=== PATIENT | female | born 2000 | race Caucasian/White ===

== ENCOUNTER 2020-05-28 03:44 | Inpatient (IN) | payer BC, OTHER ==
[2020-05-27 16:35] LABS: Urine Appearance CLEAR; Urine Bilirubin NEGATIVE (NEG); Urine Blood NEGATIVE (NEG); Urine Color YELLOW; Urine Glucose NEGATIVE (NEG); Urine Protein NEGATIVE (NEG); Urine pH 6.5 (5.0-7.0)
[2020-05-27 16:36] LABS: Absolute Lymphocytes (CBC) 1.9 K/uL (0.7-4.9); Basophils % 0.1 % (0-1.3); Hematocrit 32.8 % (36.0-45.0); Lymphocytes % 25.3 % (15.3-44.8); MPV 8.7 fL (7.6-11.3); RBC Red Blood Cell Count 3.79 M/uL (3.86-4.86)
[2020-05-27 16:54] LABS: Urine Microscopic Reflex ORDER UMIC
[2020-05-27 16:57] LABS: Urine Bacteria <20 /HPF (<20); Urine Culture Reflex Order REFLEXED; Urine Mucus LIGHT /HPF (NONE SEEN); Urine RBC NONE SEEN /HPF (NONE SEEN)
[2020-05-28 01:42] LABS: RPR (Rapid Plasma Reagin) NON-REACT (NON-REACT)
--- OUTSIDE RECORDS SUMMARY | 2020-05-28 03:48 | XMS REPORT | Continuity of Care Document ---
:2000 Author Organization [facility] t Address [address] [place] [address] Care Team Providers Name Role Phone Smitha SOLORIO APN Primary Care Physician Pob1, Care Clinic Attending Clinician Unavailable RON Attending Clinician Unavailable Smitha ESPARZA Attending Clinician Unavailable RON Admitting Clinician Unavailable Advance Directives Directive Decision Effective Date Termination Date Comments Sour ce Yes N/A [facility] - Leonidas per [facility] umang Problems Condition Condition Condition Status Onset Resolution Last Treating Co mments Source Name Details Category Date Date Treatment Clinician Date 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 00:00: Me moria ns ns 00 l (LUF/LI V/SA) Patient Patient Problem Active [facility] currently currently 9-11 Luke s - 00:00: Memori a 00 l (LUF/LI V/SA) 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 0-16 S - 00:00: [place] [facility] Chronic Chronic Problem Active [facility] cryptitis cryptitis Luke s - of tonsil of tonsil [facility] Chronic Chronic Problem Active [facility] tonsilliti tonsilliti Sam kes - s s [facility] Encounter Encounter Problem Active [facility] for for [facility] screening screening l of mother of mother Outp ati ent Clinics Missed Missed Problem Active [facility] period period [facility] Endometrio Endometrio Problem Active [facility] sis sis [facility] Pelvic Pelvic Diagnosis Active [facility] pain pain [facility] Endometria Endometria Problem Active [facility] l disorder l disorder Sam kes - Memoria l (LUF/LI V/SA) Disorder Disorder Problem Active [facility] t of of Zbigniew - boby landis Me moria r r l (LUF/LI V/SA) Influenza Problem APRIL U due to S - influenza [place] virus, [facility]oria type A, l human Hospita l Fever in Problem [facility] pediatric S - patient [place] [facility] Urinary Problem [facility] tract S - infection [place] [facility] Abdominal Problem APRIL U pain S - [place] [facility] Cough Problem [facility] S - [place] [facility] Sinusitis Problem APRIL U S - [place] [facility] Right Problem [facility] lower S - quadrant [place] abdominal [facility] pain [facility]ospita [facility] Constipati Problem JOHN MACIEL on S - [place] [facility] Upper Problem [facility] respirator S - y tract [place] infection [facility] Pain of Problem [facility] round S - ligament [place] during [facility] Muscle Problem [facility] strain S - [place] [facility] Vaginal Problem [facility]RISTU discharge S - [place] [facility] Pharyngiti Problem JOHN MACIEL s S - [place] [facility] Viral Problem [facility] upper S - respirator [place] y tract [facility] infection l Hospita l Vomiting Problem [facility] and S - diarrhea [place] [facility] Gastroesop Problem JOHN MACIEL hageal S - reflux [place] disease [facility] Female Problem [facility] pelvic S - inflammato [place] ry disease [facility] a l Hospita l Allergies, Adverse Reactions, Alerts This patient has no known allergies or adverse reactions. Social History Social Habit Start Date Stop Date Quantity Comments Source Sex Assigned At [birth year] Female [facility] - [place] 00:00:00 00:00:00 [facility] Smoking Status Start Date Stop Date Source Never smoked tobacco (finding) [facility] Medications Ordered Filled Start Stop Current Ordering Indication Dosage Frequency Signature Comments Components Source Medication Medication Date Date Medication? Clinician (SIG) Name Name Gustavo Ruiz 2018-09 Yes Sherice [address] [facility] 10/02 Ron [facility] - 00:[facility]: [facility] l [facility] Clin[facility] Acetaminoph 2018-09 No 1000mg CHRI SILVER en 09-14 S - 13:14: [place] 00 [facility] Doxycycline 2018-09 No 100mg JOHN TU Monohydrate 09-14 S - 13:14: [place] 00 [facility] Ibuprofen 2018-09 No 400mg CHRISTU 09-14 S 13:14: [place] [facility] Tramadol 2018-09 No 50mg [facility] Hcl 09-14 S 13:14: [place] [facility] Ortho Ortho Yes Sherice 1 tablet [facility] t Tri-Cyclen Tri-Cyclen 9 Ron singer - ) () 00:00: [facility] 00 l [facility]pat[facility] ent Clinics Ondansetron No 4mg APRIL U Hcl 6-17 S - 09:07: [place] [facility] Pantoprazol No 40mg APRIL U e 6-17 S - 09:07: [place] [facility] Depo-Program Rep Depo-Program Rep Yes Sherice [address] [facility] a a 5-01 Ron [facility] - [facility] Promethazin Promethazin Yes Sherice [address] [facility] e HCl e HCl 3-01 Ron 4-6 hrs [facility] - 00:00: prn nausia Memoria 00 vomiting l Outpati ent Clinics PNV PNV Yes Sherice not [facility] Ron defined [facility] Triamcinolo Triamcinolo Yes Sherice [address] [facility] ne ne Ron applicatio [facility] - Acetonide Acetonide n to Memor ia affected l area on Outpati body ent Clinics Flagyl Flagyl Yes Sherice 1 tablet [facility] Ron [facility] Yes Sherice as [facility] t Intrauterin Intrauterin Ron directed [facility] - e Copper e Copper [facility] Clin[facility] Integra Integra Yes 1cap QD [facility] Plus 125 Plus 125 [facility] - mg-1 mg mg-1 mg Memoria l (LUF/LI V/SA) No 1 [facility]U Vit,Calc76/ S - Iron/Folic [place] [facility] Immunizations Ordered Immunization Filled Immunization Date Status Commen ts Source Name Name FLUCELVAX FLUCELVAX Unknown Completed [facility] (LUF/RUSTY/SA) Vital Signs Vital Name Observation Time Observation Value Comments Source Body Temperature 2019-07-15 13:25:00 97.2 [degF] [facility] Heart Rate 2019-07-15 13:25:00 85 /min [facility] Respiratory rate 2019-07-15 13:25:00 18 /min [facility] BP Systolic 2019-07-15 13:25:00 122 mm[Hg] [facility] BP Diastolic 2019-07-15 13:25:00 76 mm[Hg] [facility] Heart Rate 2019-07-15 10:35:00 85 /min [facility] Respiratory rate 2019-07-15 10:35:00 18 /min [facility] BP Systolic 2019-07-15 10:35:00 107 mm[Hg] [facility] BP Diastolic 2019-07-15 10:35:00 70 mm[Hg] [facility] Weight 2019-07-15 10:35:00 126 [lb_av] [facility] BMI (Body Mass Index) 2019-07-15 10:35:00 21.0 kg/m2 [facility] Procedures This patient has no known procedures. Plan of Care Planned Activity Planned Date Details Comments Source Future Scheduled Test Bacterial urine culture [facility] [place] [code = 630-4] [facility] Goal Patient referral [code JOHN Gillis = [id number] ] [facility]code JOHN Gillis [facility] [id number] ] [facility] Pel[facility] Inflammatory [facility] Start End Encounter Admission Attending Care Care Encounter Source Date/Time Date/Time Type Type Clinicians Facility Department ID 2020-01-10 2020-01-10 Urgent Pob1, Acute [facility] [id number] 12:10:50 12:56:26 [place] [id number] [place] [id number] [facility] [id number] nal [address] 2019-08-03 2019-08-03 [facility] [id number] 10:00:00 10:00:00 Clinics [facility] 2019-07-15 2019-07-15 Departed JEREMY Gillis [id number] CH[facility]STU 10:32:00 13:25:[address] 2019-06-20 2019-06-[address] [facility] [id number] 10:15:00 10:15:00 Clinics [facility] 2019-05-30 2019-05-30 [facility] [id number] 13:09:00 13:09:00 Clinics [facility] 2019-05-23 2019-05-23 [facility] [id number] 15:45:00 15:45:00 Clinics [facility] 2018-10-26 2018-10-26 ENC SUPV 3 RON, [facility] [place] [id number] 07:06:00 23:59:00 OTH NORMAL KAYWIN GUAYANILLA Khushi es - PREG [facility] TRI [address], V/[place]) [place] [address] 2018-07-08 2018-07-08 Inpatient 3 RON, [facility] [place] [id number] 14:37:00 23:59:00 [facility] [place], Memoria [address], V/SA) [place] [address] 2018-04-19 2018-04-19 ENCTR 3 RON, [facility] [id number] [facility] 10:20:00 [facility]59[facility]00 [facility] [place] [address] ([address], V/SA) [place] [address] Results Test Description Test Time Test Comments Results Result Comments Source Automated blood leukocyte count (number/volume) 2019-07-15 1 1:40:00 Test Item Value Reference Range Interpretation Comme nts White Blood Count (test code = 6690-2) 7.2 10*3/uL [facility] erythrocytes automated count (number/volume)2019-07-15 11:40:00 Test Item Value Reference Range Interpretation Comments Red Blood Count (test code = 4.38 10*6/uL 789-8) [facility] hemoglobin measurement (mass/volume) 2019-07-15 11:40:00 Test Item Value Reference Range Interpretation Comments Hemoglobin (test code = 718-7) 13.7 g/dL [facility] blood hematocrit (volume fraction) 2019-07-15 11:40:00 Test Item Value Reference Range Interpretation Comments Hematocrit (test code = 4544-3) 40.3 % [facility] erythrocyte mean corpuscular volume (MCV) [id number] 11:40:00 Test Item Value Reference Range Interpretation Comments Mean Corpuscular Volume (test code = 92.0 fL 787-2) [facility] mean corpuscular hemoglobin (mass per erythrocyte)2019-07-15 11:40:00 Test Item Value Reference Range Interpretation Comments Mean Corpuscular Hemoglobin (test 31.3 pg code = 785-6) [facility] mean corpuscular hemoglobin concentration measurement (mass/[id number] 11:40:00 Test Item Value Reference Range Interpretation Comments Mean Corpuscular Hemoglobin Concent 34.0 g/dL (test code = 786-4) [facility] distribution width [id number] 11:40:00 Test Item Value Reference Range Interpretation Comments Red Cell Distribution Width (test code 12.2 % = 788-0) [facility] blood platelet count (count/volume) 2019-07-15 11:40:00 Test Item Value Reference Range Interpretation Comments Platelet Count (test code = 284 10*3/uL 777-3) [facility] platelet mean volume [id number] 11:40:00 Test Item Value Reference Range Interpretation Comments Mean Platelet Volume (test code = 10.2 fL 30307-7) [facility] sodium measurement (moles/volume)2019-07-15 11:40:00 Test Item Value Reference Range Interpretation Comments Sodium Level (test code = 2951-2) 139 mmol/L [facility] or plasma potassium measurement (moles/volume)2019-07-15 11:40:00 Test Item Value Reference Range Interpretation Comments Potassium Level (test code = 4.0 mmol/L 2823-3) [facility] chloride measurement (moles/volume)2019-07-15 11:40:00 Test Item Value Reference Range Interpretation Comments Chloride Level (test code = 106 mmol/L 5-0) [facility] total carbon dioxide measurement (moles/volume)2019-07-15 11:40:00 Test Item Value Reference Range Interpretation Comments Carbon Dioxide Level (test code = 25 mmol/L 2027-9) [facility] anion gap determination (moles/volume)2019-07-15 11:40:00 Test Item Value Reference Range Interpretation Comments Anion Gap (test code = 83362-9) 12 [facility] or plasma urea nitrogen measurement (mass/volume)2019-07-15 11:40:00 Test Item Value Reference Range Interpretation Comments Blood Urea Nitrogen (test code = 8 mg/dL 3094-0) [facility] or plasma creatinine measurement (mass/volume)2019-07-15 11:40:00 Test Item Value Reference Range Interpretation Comments Creatinine (test code = 2160-0) 0.8 mg/dL [facility] estimate [id number] 11:40:00 Test Item Value Reference Range Interpretation Comments Estimat Glomerular Filtration Rate 96 (test code = 75660-9) [facility] urea nitrogen/creatinine mass [id number] 11:40:00 Test Item Value Reference Range Interpretation Comments BUN/Creatinine Ratio (test code = 10 3097-3) [facility] or plasma glucose measurement (mass/volume)2019-07-15 11:40:00 Test Item Value Reference Range Interpretation Comments Glucose Level (test code = 2345-7) 95 mg/dL [facility] HospitalOsmolality of Serum or Plasma by calculation 2019-07-15 11:40:00 Test Item Value Reference Range Interpretation Comments Calculated Osmolality (test code 276 mosm/kg = 53697-7) [facility] or plasma calcium measurement (mass/volume)2019-07-15 11:40:00 Test Item Value Reference Range Interpretation Comments Calcium Level (test code = 80010-1) 9.6 mg/dL [facility]ysis specimen collection method 2019-07-15 10:45:00 Test Item Value Reference Range Interpretation Comments Urine Source (test code = 32996-7) URINE [facility] Urine by [id number] 10:45:00 Test Item Value Reference Range Interpretation Comments Urine Color (test code = 24469-9) Yellow [facility] clarity [id number] 10:45:00 Test Item Value Reference Range Interpretation Comments Urine Appearance (test code = 13516-3) Clear [facility] pH measurement by automated test strip 2019-07-15 10:45:00 Test Item Value Reference Range Interpretation Comments Urine pH (test code = 51596-5) 5.5 [facility] Urine by Automated test [id number] 10:45:00 Test Item Value Reference Range Interpretation Comments Urine Specific [place] (test code = 1.028 43034-1) [facility] protein measurement by automated test strip (mass/volume)2019-07-15 10:45:00 Test Item Value Reference Range Interpretation Comments Urine Protein (test code = 80135-2) 10 mg/dL [facility] glucose measurement by automated test strip (mass/volume)2019-07-15 10:45:00 Test Item Value Reference Range Interpretation Comments Urine Glucose (UA) (test code Negative mg/dL = 33467-5) [facility] ketones measurement by automated test strip (mass/volume)2019-07-15 10:45:00 Test Item Value Reference Range Interpretation Comments Urine Ketones (test code = Negative mg/dL 97589-5) [facility] erythrocytes count by automated test strip (number/volume)2019-07-15 10:45:00 Test Item Value Reference Range Interpretation Comments Urine Occult Blood (test code = Negative 73169-1) [facility] nitrite detection by automated test [id number] 10:45:00 Test Item Value Reference Range Interpretation Comments Urine Nitrite (test code = 72481-7) Negative [facility] total bilirubin measurement by automated test strip (mass/volume)2019-07-15 10:45:00 Test Item Value Reference Range Interpretation Comments Urine Bilirubin (test code = Negative mg/dL 12240-3) [facility] urobilinogen measurement by automated test strip (mass/volume)2019-07-15 10:45:00 Test Item Value Reference Range Interpretation Comments Urine Urobilinogen (test code Negative mg/dL = 40484-8) [facility] leukocytes count by automated test strip (number/volume)2019-07-15 10:45:00 Test Item Value Reference Range Interpretation Comments Urine Leukocyte Esterase Negative {Gaurav}/uL (test code = 84114-8) [facility] [id number] 10:45:00 Test Item Value Reference Range Interpretation Comments Microscopic Urinalysis (T) (test code = ----- 65553-6) [facility] sediment erythrocyte count by microscopy (number/high power field)2019-07-15 10:45:00 Test Item Value Reference Range Interpretation Comments Urine RBC (test code = None Seen /[HPF] 79940-6) [facility] sediment leukocyte count by microscopy (number/high power field)2019-07-15 10:45:00 Test Item Value Reference Range Interpretation Comments Urine WBC (test code = 5821-4) 0-5 /[HPF] [facility] sediment epithelial cell count by microscopy (number/high power field)2019-07-15 10:45:00 Test Item Value Reference Range Interpretation Comments Urine Epithelial Cells (test code Rare /[HPF] = 5787-7) [facility] sediment crystal count by microscopy (number/high power field)2019-07-15 10:45:00 Test Item Value Reference Range Interpretation Comments Urine Crystals (test code = None Seen /[HPF] 31099-1) [facility] sediment bacteria count by microscopy (number/high power field)2019-07-15 10:45:00 Test Item Value Reference Range Interpretation Comments Urine Bacteria (test code = Few /[HPF] 5769-5) [facility] sediment casts count by microscopy (number/low power field)2019-07-15 10:45:00 Test Item Value Reference Range Interpretation Comments Urine Casts (test code = None Seen /[LPF] 9842-6) [facility] detection in urine sediment by light [id number] 10:45:00 Test Item Value Reference Range Interpretation Comments Urine Yeast (test code = None Seen /[HPF] 29104-1) [facility] comment 10:45:00 Test Item Value Reference Range Interpretation Comments Urinalysis Comment (test code = 8262-8) * [facility] comment 10:45:00 Test Item Value Reference Range Interpretation Comments Urine Culture Indicated (test code To follow = 8264-4) [facility] OB FOLLOW UP PER [id number] 08:47:26 Procedure: US OB FOLLOW UP PER FETUSOrder Date: 10/26/2018 7:50 AMReferring Provider: SHERICE LOPEZformerly [facility]ong Indication: [id number]: Routine careComparison: July 08, 2018, April 19, 2018.Technique: Real-time ultrasound scanning was obtained over the gravid uterus andrepresentative images recorded.Findings:There is a single, live intrauterine in vertex lie, which demonstratesspontaneous movement during the examination. The amniotic fluid volume is normalmeasuring 17 cm. The maternal cervix is appropriate in length and closed. Theplacenta is fundal and does not cover the cervical os on this exam. biometry as follows:BPD: 8.6 cm 34 weeks 6 daysHC: 32.5 cm 36 weeks 6 daysAC: 31.9 cm 35 weeks 6 daysFL: 6.9 cm 35 weeks 3 daysEFW: 2740 grams +/- 400 grams EFW by AUA percentile: 93%The average estimated gestational age is 33 weeks 5 days, based on prior exam.There has been adequate interval growth since previous exam. Estimated date ofdelivery is December 09, 2018.The anatomic survey demonstrates normal intracranial landmarks, bonyspinal column free of gross defects, left-sided stomach, three vessel umbilicalcord with normal cord insertion, all 4 limbs, kidneys, bladder and a4-chamber heart with heart rate of 1:30 bpm.Impression:1. Single live intrauterine with an estimated gestational age of 33weeks 5 days and an estimated delivery date of December 09, 2018.2. The anatomic surveyis normal.3. There is no evidence of placenta previa and the maternal cervix is long andclosed. The cervical length is 5.0 cm.4. gender is male.5. Normal amniotic fluid index measuring 17 cm.This final report was electronically signed by Dr Lucien Zapien MD 10/26/20188:40 AMDictated By: LUCIEN ZAPIENDate: 10/26/2018 08:40US OB COMP > 14 WKS (TA)2018-07-10 04:29:49Procedure: US OB COMP > 14 WKS (TA)Date: 07/08/2018 3:30 PMReferring Physician: SHERICE Gates Indication: Encounter for supervision of other normal , thirdtrimesterComparison: Obstetrical sonogram, 04/19/18.Real-time ultrasound scanning was obtained over the gravid uterus andrepresentative images recorded. There is a single, live intrauterine pregnancyin breech lie, which demonstrates spontaneous movement during the examination.The amniotic fluid volume is subjectively normal. The maternal cervix isappropriate in length and closed. The placenta is fundal and does not cover thecervical os on this exam. biometry as follows:BPD: 4.3 cm 19 weeks zero days.HC: 15.7 cm 18 weeks 4 days.AC: 14.1 cm 19 weeks 4 days.FL: 3.2 cm 19 weeks 6 daysEFW: 296 grams +/- 43 grams EFW by AUA percentile: 58%The average estimated gestational age is 18 weeks zero days, based on priorexam. There Has been adequate interval growth since prior exam. Estimated dateof delivery is 12/09/18 .The anatomic survey demonstrates normal intracranial landmarks, bonyspinal column free of gross defects, left-sided stomach, three vessel umbilicalcord with normal cord insertion, all 4 limbs, kidneys and a 4-chamberheart with heart rate of 153 bpm.Impression:1. Single live intrauterine with an estimated gestational age of 18weeks zero days and an estimated delivery date of 12/09/18.2. The anatomic survey is normal.3. There is no evidence of placenta previa and the maternal cervix is long andclosed.Cervical Length: 3.9 cm4. gender is male.This final report was electronically signed by Dr Kelby Harmon MD07/10/2018 4:23 AMDictated By: KELBY BELLAMYDate: 07/10/2018 04:23TIC US OB <14 WKS 0 DAYS [id number] 13:52:42 Procedure: TIC US OB <14 WKS 0 DAYS TRANSABDOrder Date: 04/19/2018 11:00 AMReferring Provider: DR SHERICE LOPEZlinical Indication: Encounter for screening, unspecifiedComparison: None.Real-time ultrasound scanning was obtained over the gravid uterus andrepresentative images recorded. There is a single, live intrauterine .There is a pole with crown rump length measuring0.7 cm. The amnioticfluid volume is subjectively normal. The maternal cervix is appropriate inlength and closed.The average estimated gestational age is 6 weeks 4 days. Estimated date ofdelivery is December 09, 2018. heart rate measures 120 beats per minute.There is no subchorionic fluid collection.Placental position not able to be determined at this time.The right ovary is normal in size withoutsolid or cystic masses.The left ovary is normal in size without solid or cystic masses.There is no free fluid in the cul-de-sac.Impression:1. Single live intrauterine with an estimated gestational age of 6weeks 4 days and an estimated delivery date of December 09, 2018.2. The heart rate measures 120 beats per minute.3. No subchorionic fluid collection.4. No adnexal masses.This final report was electronically signed by Dr Lucien Zapien MD 04/19/20181:46 PMDictated By: LUCIEN ZAPIEN.Date: 04/19/2018 13:52RUBELLA IMMUNE [id number] 09:47:00 Test Item Value Reference Range Interpretation Comments RUBELLA ANTIBODIES, 1.31 index Immune >0.99 N IGG (test code = No n-immune 000013) <0.90 Equivocal 0.90 - 0.99 Immune >0.99 PERFORMED AT: [facility] [address] [id number] COPYHOLDER: Diogenes Pitts MD PHONE: [phone] 16:33:00 Test Item Value Reference Range Interpretation Comments FT (test code = RPR) Non-Reactive (qualifier Non-Reactive N value) HIV 11:05:00 Test Item Value Reference Range Interpretation Comments HIV 1, 2 (test code 0.14 0.00-0.90 INTERPRE TATION OF RESULTS: = HIV) Non-Reactive = < 0.90 s/c Reactive = > 1.00 s/c (Confirmat ory tests suggested) Inte rmediate = > 0.90 s/c and <1.00 s/c (results are ba sed on duplicate testi ng) 1. Result is consi dered as Non-Reactive if both the initial and rep eat testing results are non -reactive. 2. Result is c onsidered as Reactive if one or both the initial and rep eat testing results are pratik ctive. (Con firmatory tests suggested ) HEP B SURFACE [id number] 11:05:00 Test Item Value Reference Range Interpretation Comments Hep B Surface Ag 0.06 mIU/mL 0.00-1.00 HBsAg Signa l Cutoff (Signal Value) Interpretatio n Guide: (test code = < 1.00 HBSAG.SV) Negative Spec imen is presumed to be negative for HB sAg. >=1.00 and < 5. 00 Reactive Spec imen is reactive for HB sAg. Suggest confirm ation by supplemental testing. > 5.00 Positive Specimen is pos itive for HBsAg. FT (test code = Negative Negative N HBSAG) (qualifier value) TYPE & [id number] 10:31:00 Test Item Value Reference Range Interpretation Comments ABO Blood Type (test code = ABO) O Rh (test code = RH) Positive Antibody Screen (test code = ABSCR) Negative Negative N ARMBAND# (test code = ARMBAND) FF 84 680 CBC WITH AUTO [id number] 09:58:00 Test Item Value Reference Range Interpretation Comments WBC (test code = 11.80 4.80-10.80 H WBC) 10\\S\\3/ul RBC (test code = 3.44 10\\S\\6/ul 4.20-5.40 L RBC) Hemoglobin (test 10.4 gm/dl 12.0-14.0 L code = HGB) Hematocrit (test 30.6 % 37.0-47.0 L code = HCT) MCV (test code = 89.0 fL 81.0-99.0 MCV) MCH (test code = 30.2 pg 27.0-31.0 MCH) MCHC (test code = 34.0 gm/dl 33.0-37.0 MCHC) RDW (test code = 14.3 % 11.5-14.5 RDWVC) Platelet (test code 233 10\\S\\3/ul 130-400 = PLT) MPV (test code = 10.3 fL 7.4-10.4 A "NOT MEASUR ED" MPV) RESULTS ARE DIS PLAYED WHEN THE INSTRU MENT HAS A SUPPRESSE D OR UNREPORTABLE RE SULT. THIS WILL MOST OFTEN HAPPEN WITH THE MPV WHEN THERE IS A N ABNORMAL PLATLE T DISTRIBUTION DU E TO A CRITICAL LOW VA LUE OR PLATELET CLUMPI NG. NE% (test code = 88.3 % 42.0-75.0 H NE) LY% (test code = 8.2 % 13.0-42.0 L LY) MO% (test code = 2.6 % 4.0-14.0 L MO) EO% (test code = 0.1 % 1.0-3.0 L EO) BA% (test code = 0.3 % 1.0-3.0 L BA) IG% (test code = 0.5 % 0.0-0.4 H IG%) URINALYSIS WITH [id number] 04:52:00 Test Item Value Reference Range Interpretation Comments Color (test code = UCOLR) YELLOW Clarity (test code = UCLAR) CLEAR Glucose (test code = UGLUC) NEGATIVE NEGATIVE N Bilirubin (test code = UBILI) NEGATIVE NEGATIVE N Ketones (test code = UKET) NEGATIVE NEGATIVE N Specific [place] (test code = 1.015 1.005-1.030 A USPGR) Blood (test code = UBLD) NEGATIVE NEGATIVE N PH (test code = UPH) 7.5 4.5-8.0 A Protein (test code = UPROT) NEGATIVE NEGATIVE N Urobilinogen (test code = U UROB) 0.2 >0.2 N Nitrite (test code = UNITR) NEGATIVE NEGATIVE N Leukocyte Esterase (test code = NEGATIVE NEGATIVE N ULEUK) WBC (test code = WBCUR) 0-1 0-5 A RBC (test code = RBCUR) 0-1 0-5 A Epithial Cells (test code = U EPI) 0-10 0-10 N Mucous (test code = UMUC) None Seen None Seen N Bacteria (test code = UBACT) Trace None Seen,Trace N
[2020-05-28] MEDS ORDERED: Ringers Lactate 1,000 ML IV PRN (04:23)
[2020-05-28] MEDS ORDERED: NA CIT/CITRIC AC 30 ML ORAL UDC PO ONE (04:28)
[2020-05-28] MEDS ORDERED: FAMOTIDINE 20 MG/2 ML VIAL IV ONE (04:29)
[2020-05-28 04:44] VITALS: BMI 27.9
[2020-05-28] MEDS ORDERED: Ringers Lactate 1,000 ML IV SCH (05:00)
[2020-05-28] MEDS ORDERED: METOCLOPRAMIDE 10 MG/2mL INJ IV SCH (05:00)
[2020-05-28] MEDS ORDERED: CEFAZOLIN 1GM (PREMIX IV) 50 ML IV SCH (05:00)
[2020-05-28] MEDS ORDERED: CARBOPROST TROME 250 MCG/ML IM ONE (06:07)
[2020-05-28] MEDS ORDERED: METHYLERGONOVINE 0.2MG/ML AMP IM ONE (06:07)
[2020-05-28] MEDS ORDERED: CEFAZOLIN/SWI 1gm 1 GM/10 ML SYR IV ONE (06:15)
[2020-05-28] MEDS ORDERED: CEFAZOLIN/SWI 1gm 1 GM/10 ML SYR ONE (06:18)
[2020-05-28] MEDS ORDERED: MORPHINE SULFATE/PF 1 MG/ML (10 ML AMP) ONE (06:35)
[2020-05-28] MEDS ORDERED: Phenylephrine HCl 10 MG/ML 1 ML VIAL ONE (06:35)
[2020-05-28] MEDS ORDERED: FENTANYL CITR 250 MCG/5 ML ONE (06:35)
[2020-05-28] MEDS ORDERED: OXYTOCIN 10 UNIT/ML ML IV ONE ×2 (06:35→06:36)
[2020-05-28] MEDS ORDERED: EPHEDRINE SULF 50 MG/ML VIAL ONE (06:35)
[2020-05-28] MEDS ORDERED: BUPIVACAINE 0.75% (PF) 2 ML SP ONE (06:36)
[2020-05-28] MEDS ORDERED: ONDANSETRON 4 MG/2 ML VIAL ONE (06:36)
[2020-05-28] MEDS ORDERED: LIDOCAINE 1% MPF 5 ML VIAL ONE (06:36)
[2020-05-28] MEDS ORDERED: NS 0.9% VIAL 20 ML ONE ×2 (06:36→08:12)
--- NOTE | 2020-05-28 07:52 | RAD REPORT ---
EXAM DESCRIPTION: RAD - Abdomen 1 View (KUB) - 05/28/2020 4:26 am CLINICAL HISTORY: Abdomen pain. FINDINGS: Breech presentation Maternal spine slightly to the right of midline
[2020-05-28] MEDS ORDERED: ACETAMINOPHEN 500 MG TAB PO PRN ×2 (08:12)
[2020-05-28] MEDS ORDERED: DIPHENHYDRAMINE 25 MG TAB/CAP PO PRN (08:12)
[2020-05-28] MEDS ORDERED: ONDANSETRON 4 MG (ODT) TAB PO PRN (08:12)
[2020-05-28] MEDS ORDERED: BISACODYL 10 MG RECTAL SUPP RC PRN (08:12)
[2020-05-28] MEDS ORDERED: ONDANSETRON 4 MG/2 ML VIAL IV PRN (08:12)
[2020-05-28] MEDS ORDERED: IBUPROFEN 600 MG TAB PO PRN (08:12)
[2020-05-28] MEDS ORDERED: KETOROLAC 30 MG/ML INJ IM PRN (08:12)
[2020-05-28] MEDS ORDERED: D5LR 1,000 ML with OXYTOCIN 20 UNIT IV SCH ×2 (09:00)
[2020-05-28] MEDS ORDERED: OXYTOCIN/LR 20 UNIT/1,000 ML BAG IV SCH (09:00)
--- NOTE | 2020-05-28 09:05 | OP ---
Surgeon: Yan Mcintosh MD Phone Counselor: Avery Leiva M.D. Anesthesiologist: Dr. Raphael. Indications: Jessica Ferrera is a 20-year-old, 3, para 2, 39 weeks, breech presentation. Bab y stayed breech for some time now. Infection; blood loss; anesthetic complications; injury to bladde r, bowel, ureter; postoperative complications; clots in legs; and pneumonia discussed. The patient k nows fully well this does not constitute all the possible problems that could occur during or followi ng surgery. Anesthesia: Spinal block anesthesia. Description Of Procedure: After adequate spinal block anesthesia, prepping and draping, time-out was performed. A low-transverse skin incision was made. The incision was carried to the fascia. The f ascia was incised and incision carried transversely bilaterally. Anterior and posterior fascial plan es were developed with both blunt and sharp dissection, underlying rectus muscle . Peritone al defect seen and retraction applied. Low transverse bladder flap developed. Low transverse uterin e incision created. An 8 pounds 2 ounces male was delivered easily. Apgars 9 and 9. Cord bl ood, specimen obtained. Placenta removed manually. Uterus cleared of clot and blood and exteriorize d. Cervical os dilated with ring clamp. Uterus closed with a running lock stitch of 1 chromic follo wed by 2 to 3 [id number] stitches in the right angle for complete hemostasis. Estimated blood l oss 800 to 850 cc. Gutters clear of clot and blood. Uterus replaced in the peritoneal cavity. Insp ection of suture line showed no further bleeding. Muscles then reapproximated with 0 Vicryl 3 interr upted sutures. Fascia closed with 1 Vicryl running from either angle to the midline. Subcutaneous t issue closed with interrupted [id number] stitches with 2-0 plain. Dimock used for the skin. T he patient has been given 2 g of Ancef prior to the surgery. The patient tolerated all procedures we ll and transferred back to her room in good condition. She was noted to have anemia on admission wit h hematocrit of approximately 33. Final Diagnoses: Term intrauterine at 39 weeks, breech presentation, primary sect ion, spinal block anesthesia. JOSE R/VEL Voice ID: [id number] Report ID: [id number]
--- NOTE | 2020-05-28 09:20 | PREOPHP ---
Date of Admission: 05/28/2020 History Of Present Illness: This is a 19-year-old 3, para 2, at 39 weeks tomorrow, noted to be breech presentation, has been for some time now. Options were discussed including vaginal deliver y attempt. The patient is wishing for section. Infection; blood loss; anesthetic complicat ions; injury to bladder, bowel, ureter; postoperative complications; clots in legs; and pneumonia dis cussed. The patient knows fully well that this does not constitute all the possible problems that co uld occur during or following the surgery. Family History: Mother with type of cancer, unrelated to present situation. Otherwise, noncontribut ory. Past Medical History: The patient had chlamydia in the past, but nothing recently. Past Surgical History: No previous surgeries. Allergies: NO DRUG ALLERGIES. Medications: vitamins prior to admission. Physical Examination: HEENT: Clear. Pupils equal, round, reactive to light and accommodation. Conjunctivae well perfused . No oral, lingual, or buccal lesions. Chest and Lungs: Clear. Heart: Without murmurs, thrills, heaves, or rubs. Breasts: Without masses. Abdomen: Term size. Extremities: Clear without edema. No cyanosis or clubbing. Assessment/plan: Baby is dimitrios breech. We will proceed with primary section tomorrow. JOSE R/VEL Voice ID: [id number]
[2020-05-28] MEDS: KETOROLAC 30 MG/ML INJ IV PRN ×2 (11:22→23:38)
[2020-05-28] MEDS ORDERED: CEFAZOLIN/SWI 1gm 1 GM/10 ML SYR IV SCH (15:00)
[2020-05-28] MEDS ORDERED: DIPHENHYDRAMINE 50 MG/ML VIAL IV ONE (15:00)
[2020-05-28] MEDS ORDERED: CEFAZOLIN 2 GM in NA CHLORIDE 0.9% 100 ML IVPB ONE (15:30)
[2020-05-28] MEDS ORDERED: CEFAZOLIN/SWI 2gm 2 GM/20 ML SYR ONE (15:55)
[2020-05-28] MEDS: Oxycodone HCl/Acetaminophen 1 TAB TAB PO PRN ×2 (18:26→22:55)
[2020-05-29] MEDS: Oxycodone HCl/Acetaminophen 1 TAB TAB PO PRN ×4 (05:30→18:29)
--- NOTE | 2020-05-29 07:49 | PN ---
Jessica Ferrera is a 20-year-old 3, para 2, breech presentation, underwent section. This morning is doing quite well. H and H with expected change. Lochia are normal. No post spinal block problems other than pruritus, which is abating. She already ambulated. We will discontinue Fo moi and IV. Start p.o. solid intake. Full postop talk given. If all goes well, she will go home [place]. She has not had her Tdap shot during the . This has been offered during the pregna ncy and offered again. Flu shots, if not available here in the hospital, the patient knows she can g et in my office later this week or next week. Full postop talk given. Doing well. JOSE R/VEL Voice ID: [id number] Report ID: [id number]
[2020-05-29] MEDS ORDERED: MAGNESIUM HYDROXIDE 8% 30 ML PO PRN (08:12)
[2020-05-30] MEDS: Oxycodone HCl/Acetaminophen 1 TAB TAB PO PRN ×2 (00:15→07:45)
[2020-05-30 07:26] VITALS: BP 115/61; TEMP 97.3
--- NOTE | 2020-05-30 07:46 | DS ---
Jessica Ferrera, 20-year-old, 3, para 1, 39 weeks, breech presentation, underwent primary cesa rean section with delivery of an 8 pounds 2 ounces male , Apgars 9 and 9. Low transverse uteri ne incision. Spinal block anesthesia. 800 to 850 cc blood loss. Ancef prior to and 8 hours after t he surgery for prophylaxis. Postoperatively, afebrile, ambulating, voiding, lochia is normal. No po st spinal block problems. Tdap and flu shots offered, dismissed with tramadol for analgesia, she kno ws this goes to the breast milk and may elect to take Motrin instead. To report back to my office ne xt week for staple removal. To report any temperature elevation of 100 degrees or greater, severe pa in, heavy bleeding, or any other type of abnormalities. Rh positive, immune to rubella, negative bet a strep screen, negative COVID status. Final Diagnoses: Term intrauterine , 39 weeks, dimitrios breech presentation, primary section, low transverse cervical, spinal block anesthesia. JOSE R/VEL Voice ID: [id number] Report ID: [id number]
[2020-05-30] MEDS ORDERED: Tdap (Diph,Pertuss(Acell),Tet Vac) 0.5 ML SYR IMVAC ONE (09:07)
[2020-05-30 19:20] LABS: HBsAG Nonreactive (Nonreactive)
== END 2020-05-30 09:15 | disposition home or self-care (01) | DRG 788 ==
LOC: 2ND-WC 03:44
PROVIDERS: ADMIT Specialist; ATTEND Specialist
PROC: 10907ZC Drainage of Amniotic Fluid, Therapeutic from Products of Conception, Via Natural or Artificial Opening (ICD-10-PCS; 2020-05-28)
PROC: 10D00Z1 Extraction of Products of Conception, Low, Open Approach (ICD-10-PCS; principal; 2020-05-28 07:30)
DX: O32.1XX0 Maternal care for breech presentation, not applicable or unspecified (principal); Z3A.39 39 weeks gestation of pregnancy; Z37.0 Single live birth; Z20.828 Contact with and (suspected) exposure to other viral communicable diseases; Z23 Encounter for immunization
CPT/HCPCS: 36415; 74018; 81003; 81015; 85014; 85025; 86592; 86850; 86900; 86901; 87086; 87088; 87340; 88307; 90471; 90715; G0433; J0690; J1200; J2210; J2370; J2405; J2590; J2765; J3010; J7120; J7121; U0003

== ENCOUNTER 2020-06-28 13:17 | Emergency (ER) | payer BC, OTHER ==
--- OUTSIDE RECORDS SUMMARY | 2020-06-28 13:20 | XMS REPORT | Continuity of Care Document ---
:2000 Author Organization [facility] t Address [address] [place] [address] Care Team Providers Name Role Phone Smitha SOLORIO APN Primary Care Physician Pob1, Care Clinic Attending Clinician Unavailable RON Attending Clinician Unavailable Smitha ESPARZA Attending Clinician Unavailable RON Admitting Clinician Unavailable Advance Directives Directive Decision Effective Date Termination Date Comments Sour ce Yes N/A [facility] - Leonidas per [facility] umang Problems Condition Condition Condition Status Onset [...] 2013-09 [facility]U dyskinesia 0-16 S - 00:00: [place] [facility] Chronic Chronic [...] [facility] Influenza Problem APRIL U due to S - influenza [place] virus, [facility] type A, l human Hospita l Fever in Problem [facility] pediatric S - patient [facility] Urinary Problem [facility] tract S - infection [facility] Abdominal Problem APRIL U pain S - [facility] Cough Problem [facility] S - [facility] Sinusitis Problem APRIL U S - [facility] Right Problem [facility] lower S - quadrant [place] Constipati Problem JOHN MACIEL on S - [facility] Upper Problem [facility] respirator S - y tract [place] Pain of Problem [facility] round S - ligament [place] during [facility] Muscle Problem [facility] strain S - [facility] Vaginal Problem [facility] discharge S - [facility] Pharyngiti Problem JOHN MACIEL s S - [facility] Viral Problem [facility] upper S - respirator [place] y tract [facility] infection [facility]ita [facility] Vomiting Problem [facility] and S - diarrhea [facility] Gastroesop Problem JOHN MACIEL hageal S - reflux [place] [facility] Female Problem [facility] pelvic S - inflammato [place] ry disease [facility] Endometria Endometria Problem Active [facility] l disorder l disorder Sam kes - [facility] (LUF/LI V/SA) Disorder Disorder Problem Active [facility] - gallbladde gallbladde Me moria r r l (LUF/LI V/SA) Allergies, Adverse Reactions, Alerts This patient has no known allergies or adverse reactions. Social History Social Habit Start Date Stop Date Quantity Comments Source Sex Assigned At [birth year] Female [facility] - [place] 00:00:00 00:00:00 [facility] Smoking Status Start Date Stop Date Source Never smoked tobacco (finding) C [facility] Medications Ordered Filled Start Stop Current Ordering Indication Dosage Frequency Signature Comments Components Source Medication Medication Date Date Medication? Clinician (SIG) Name Name Gustavo Ruiz 2018-09 Yes Sherice [address] [facility] [address] 10[facility]02 [facility] Acetaminoph 2018-09 No 1000mg CHRI SILVER en 09-14 S - 13:14: [place] [facility] Doxycycline 2018-09 No 100mg JOHN TU Monohydrate 09-14 S - 13:14: [place] [facility] Ibuprofen 2018-09 No 400mg CHRISTU 09-14 S 13:14: [facility] Tramadol 2018-09 No 50mg CH[facility]U Hcl 09-14 S 13:14: [place] [facility] Ortho Ortho Yes Sherice 1 tablet [facility] Tri-Cyclen Tri-Cyclen 9 Ron singer - ) () 00:00: [facility] Ondansetron No 4mg APRIL U Hcl 6-17 S - 09:07: [place] [facility] Pantoprazol No 40mg APRIL U e 6-17 S - 09:07: [place] [facility] 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-Import 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 Export Clerk Depo-Import And Export Clerk Yes Sherice [address] [facility] [...] [facility] Yes Sherice as [facility] Intrauterin Intrauterin Ron directed [facility] Copper e Copper [facility] No 1 CH[facility]U Vit,Calc76/ S - Iron/Folic [facility] Integra Integra Yes 1cap QD [facility] Plus 125 Plus 125 [facility] - mg-1 mg mg-1 mg Memoria l (LUF/LI V/SA) Immunizations Ordered Immunization Filled Immunization Date Status Commen ts Source Name Name FLUCELVAX FLUCELVAX Unknown Completed [facility] (LUF/RUSTY/SA) Vital Signs Vital Name Observation Time Observation Value Comments Source Body Temperature 2019-07-15 13:25:00 97.2 [degF] [facility] Heart Rate 2019-07-15 13:25:00 85 /min [facility] Respiratory rate 2019-07-15 13:25:00 18 /min [facility] BP Systolic 2019-07-15 13:25:00 122 mm[Hg] [facility] BP Diastolic 2019-07-15 13:25:00 76 mm[Hg] [facility] Heart Rate 2019-07-15 10:35:00 85 /min [facility] Respiratory rate 2019-07-15 10:35:00 18 /min [facility] BP Systolic 2019-07-15 10:35:00 107 mm[Hg] [facility] BP Diastolic 2019-07-15 10:35:00 70 mm[Hg] [facility] Weight 2019-07-15 10:35:00 126 [lb_av] [facility] BMI (Body Mass Index) 2019-07-15 10:35:00 21.0 kg/m2 [facility] Procedures This patient has no known procedures. Plan of Care Planned Activity Planned Date Details Comments Source Future Scheduled Test Bacterial urine culture [facility] [place] [code = 630-4] [facility] Goal Patient referral [code JOHN Gillis = [id number] ] [facility]code JOHN Gillis = [id number] ] [facility] Instructions Pelvic Inflammatory [facility] - [place] Disease [facility] Encounters Start End Encounter Admission Attending Care Care Encounter Source Date/Time Date/Time Type Type Clinicians Facility Department ID 2020-01-10 2020-01-10 Urgent Pob1, Acute [facility] [id number] 12:10:50 12:56:26 [place] [id number] [place] [id number] [facility] [id number] nal [address] 2019-08-03 2019-08-03 [facility] [id number] 10:00:00 10:00:00 Clinics [facility] Health I [facility] Outpat[facility] 2019-07-15 2019-07-15 Departed JEREMY Gillis [id number] [facility]U 10:32:00 13:25:[address] 2019-06-20 2019-06-20 Outpatient [facility] [id number] 10:15:00 10:15:00 Clinics [facility] Health I l Outpat[facility] ent [facility] 2019-05-30 2019-05-30 [facility] [id number] 13:09:00 13:09:00 Clinics [facility] Health I l Outpati ent [facility] 2019-05-23 2019-05-23 [facility] [id number] 15:45:00 15:45:00 Clinics [facility] Health I l Outpati ent [facility] 2018-10-26 2018-10-26 ENC SUPV 3 RON, [facility] [place] [id number] 07:06:00 23:59:00 OTH NORMAL [place] Khushi es - PREG [facility] [address], V/SA) [place] [address] 2018-07-08 2018-07-08 Inpatient 3 RON, [facility] [place] [id number] 14:37:00 23:59:00 [facility] [place] [address] ([address], V/SA) [place] [address] 2018-04-19 2018-04-19 ENCTR 3 RON, [facility] [id number] [facility] 10:20[facility]00 23:59[facility]00 [facility] [place] [address] ([address]F/[address], V/SA) [place] [address] Results Test Description Test Time Test Comments Results Result Comments Source Automated blood leukocyte count (number/volume) 2019-07-15 1 1:40:00 Test Item Value Reference Range Interpretation Comme nts White Blood Count (test code = 6690-2) 7.2 10*3/uL [facility] erythrocytes automated count (number/volume)2019-07-15 11:40:00 Test Item Value Reference Range Interpretation Comments Red Blood Count (test code = 4.38 10*6/uL 789-8) [facility] hemoglobin measurement (mass/volume) 2019-07-15 11:40:00 Test Item Value Reference Range Interpretation Comments Hemoglobin (test code = 718-7) 13.7 g/dL [facility] blood hematocrit (volume fraction) 2019-07-15 11:40:00 Test Item Value Reference Range Interpretation Comments Hematocrit (test code = 4544-3) 40.3 % [facility] mean corpuscular volume (MCV) [id number] 11:40:00 Test Item Value Reference Range Interpretation Comments Mean Corpuscular Volume (test code = 92.0 fL 787-2) [facility] mean corpuscular hemoglobin (mass per erythrocyte)2019-07-15 11:40:00 Test Item Value Reference Range Interpretation Comments Mean Corpuscular Hemoglobin (test 31.3 pg code = 785-6) [facility] mean corpuscular hemoglobin concentration measurement (mass/[id number] 11:40:00 Test Item Value Reference Range Interpretation Comments Mean Corpuscular Hemoglobin Concent 34.0 g/dL (test code = 786-4) [facility] distribution width [id number] 11:40:00 Test Item Value Reference Range Interpretation Comments Red Cell Distribution Width (test code 12.2 % = 788-0) [facility] platelet count (count/volume) 2019-07-15 11:40:00 Test Item Value Reference Range Interpretation Comments Platelet Count (test code = 284 10*3/uL 777-3) [facility] platelet mean volume [id number] 11:40:00 Test Item Value Reference Range Interpretation Comments Mean Platelet Volume (test code = 10.2 fL 30810-4) [facility] sodium measurement (moles/volume)2019-07-15 11:40:00 Test Item Value Reference Range Interpretation Comments Sodium Level (test code = 2951-2) 139 mmol/L [facility] or plasma potassium measurement (moles/volume)2019-07-15 11:40:00 Test Item Value Reference Range Interpretation Comments Potassium Level (test code = 4.0 mmol/L 2823-3) [facility] chloride measurement (moles/volume)2019-07-15 11:40:00 Test Item Value Reference Range Interpretation Comments Chloride Level (test code = 106 mmol/L 5-0) [facility] total carbon dioxide measurement (moles/volume)2019-07-15 11:40:00 Test Item Value Reference Range Interpretation Comments Carbon Dioxide Level (test code = 25 mmol/L 2027-9) [facility] plasma anion gap determination (moles/volume)2019-07-15 11:40:00 Test Item Value Reference Range Interpretation Comments Anion Gap (test code = 96561-0) 12 [facility] or plasma urea nitrogen measurement (mass/volume)2019-07-15 11:40:00 Test Item Value Reference Range Interpretation Comments Blood Urea Nitrogen (test code = 8 mg/dL 3094-0) [facility] or plasma creatinine measurement (mass/volume)2019-07-15 11:40:00 Test Item Value Reference Range Interpretation Comments Creatinine (test code = 2160-0) 0.8 mg/dL [facility] estimate [id number] 11:40:00 Test Item Value Reference Range Interpretation Comments Estimat Glomerular Filtration Rate 96 (test code = 19247-0) [facility] urea nitrogen/creatinine mass [id number] 11:40:00 Test Item Value Reference Range Interpretation Comments BUN/Creatinine Ratio (test code = 10 3097-3) [facility] or plasma glucose measurement (mass/volume)2019-07-15 11:40:00 Test Item Value Reference Range Interpretation Comments Glucose Level (test code = 2345-7) 95 mg/dL [facility] HospitalOsmolality of Serum or Plasma by calculation 2019-07-15 11:40:00 Test Item Value Reference Range Interpretation Comments Calculated Osmolality (test code 276 mosm/kg = 66497-2) [facility] or plasma calcium measurement (mass/volume)2019-07-15 11:40:00 Test Item Value Reference Range Interpretation Comments Calcium Level (test code = 88481-1) 9.6 mg/dL [facility] Hospital[facility]inalysis specimen collection method 2019-07-15 10:45:00 Test Item Value Reference Range Interpretation Comments Urine Source (test code = 66795-0) URINE [facility] by [id number] 10:45:00 Test Item Value Reference Range Interpretation Comments Urine Color (test code = 20004-4) Yellow [facility] Hospital[facility] clarity [id number] 10:45:00 Test Item Value Reference Range Interpretation Comments Urine Appearance (test code = 48863-4) Clear [facility] pH measurement by automated test strip 2019-07-15 10:45:00 Test Item Value Reference Range Interpretation Comments Urine pH (test code = 86125-2) 5.5 [facility]th[facility] gravity of Urine by Automated test [id number] 10:45:00 Test Item Value Reference Range Interpretation Comments Urine Specific Hope (test code = 1.028 51604-8) [facility] protein measurement by automated test strip (mass/volume)2019-07-15 10:45:00 Test Item Value Reference Range Interpretation Comments Urine Protein (test code = 86270-5) 10 mg/dL [facility] glucose measurement by automated test strip (mass/volume)2019-07-15 10:45:00 Test Item Value Reference Range Interpretation Comments Urine Glucose (UA) (test code Negative mg/dL = 41530-7) [facility] ketones measurement by automated test strip (mass/volume)2019-07-15 10:45:00 Test Item Value Reference Range Interpretation Comments Urine Ketones (test code = Negative mg/dL 74020-4) [facility] erythrocytes count by automated test strip (number/volume)2019-07-15 10:45:00 Test Item Value Reference Range Interpretation Comments Urine Occult Blood (test code = Negative 43089-3) [facility] nitrite detection by automated test [id number] 10:45:00 Test Item Value Reference Range Interpretation Comments Urine Nitrite (test code = 23253-6) Negative [facility] total bilirubin measurement by automated test strip (mass/volume)2019-07-15 10:45:00 Test Item Value Reference Range Interpretation Comments Urine Bilirubin (test code = Negative mg/dL 54788-1) [facility] urobilinogen measurement by automated test strip (mass/volume)2019-07-15 10:45:00 Test Item Value Reference Range Interpretation Comments Urine Urobilinogen (test code Negative mg/dL = 25445-0) [facility] leukocytes count by automated test strip (number/volume)2019-07-15 10:45:00 Test Item Value Reference Range Interpretation Comments Urine Leukocyte Esterase Negative {Gaurav}/uL (test code = 88515-3) [facility] [id number] 10:45:00 Test Item Value Reference Range Interpretation Comments Microscopic Urinalysis (T) (test code = ----- 39107-5) [facility] sediment erythrocyte count by microscopy (number/high power field)2019-07-15 10:45:00 Test Item Value Reference Range Interpretation Comments Urine RBC (test code = None Seen /[HPF] 59482-4) [facility] sediment leukocyte count by microscopy (number/high power field)2019-07-15 10:45:00 Test Item Value Reference Range Interpretation Comments Urine WBC (test code = 5821-4) 0-5 /[HPF] [facility] sediment epithelial cell count by microscopy (number/high power field)2019-07-15 10:45:00 Test Item Value Reference Range Interpretation Comments Urine Epithelial Cells (test code Rare /[HPF] = 5787-7) [facility] sediment crystal count by microscopy (number/high power field)2019-07-15 10:45:00 Test Item Value Reference Range Interpretation Comments Urine Crystals (test code = None Seen /[HPF] 31072-0) [facility] sediment bacteria count by microscopy (number/high power field)2019-07-15 10:45:00 Test Item Value Reference Range Interpretation Comments Urine Bacteria (test code = Few /[HPF] 5769-5) [facility] sediment casts count by microscopy (number/low power field)2019-07-15 10:45:00 Test Item Value Reference Range Interpretation Comments Urine Casts (test code = None Seen /[LPF] 9842-6) [facility] detection in urine sediment by light [id number] 10:45:00 Test Item Value Reference Range Interpretation Comments Urine Yeast (test code = None Seen /[HPF] 32455-0) [facility] comment 10:45:00 Test Item Value Reference Range Interpretation Comments Urinalysis Comment (test code = 8262-8) * [facility] comment 10:45:00 Test Item Value Reference Range Interpretation Comments Urine Culture Indicated (test code To follow = 8264-4) [facility] OB FOLLOW UP PER [id number] 08:47:26 Procedure: US OB FOLLOW UP PER FETUSOrder Date: 10/26/2018 7:50 AMReferring Provider: SHERICE LOPEZsouthwest regional rehabilitation centerjong Indication: [id number]: Routine careComparison: July 08, 2018, April 19, [...] 04:23TIC US OB <14 WKS 0 DAYS [id number] 13:52:42 Procedure: TIC US OB <14 WKS [...] PMDictated By: LUCIEN ZAPIEN.Date: 04/19/2018 13:52RUBELLA IMMUNE [id number] 09:47:00 Test Item Value Reference Range Interpretation Comments RUBELLA ANTIBODIES, 1.31 index Immune >0.99 N IGG (test code = No n-immune 907129) <0.90 Equivocal 0.90 - 0.99 Immune >0.99 PERFORMED AT: [facility] [address] [id number] SENIOR CLINICAL RESEARCH SCIENTIST: Diogenes Pitts MD PHONE: [phone] 16:33:00 Test Item Value Reference Range Interpretation [...] firmatory tests suggested ) HEP B SURFACE [id number] 11:05:00 Test Item Value Reference Range Interpretation [...] Negative N HBSAG) (qualifier value) TYPE & [id number] 10:31:00 Test Item Value Reference Range Interpretation Comments ABO Blood Type (test code = ABO) O Rh (test code = RH) Positive Antibody Screen (test code = ABSCR) Negative Negative N ARMBAND# (test code = ARMBAND) FF 84 680 CBC WITH AUTO [id number] 09:58:00 Test Item Value Reference Range Interpretation [...] 0.5 % 0.0-0.4 H IG%) URINALYSIS WITH [id number] 04:52:00 Test Item Value Reference Range Interpretation Comments Color (test code = UCOLR) YELLOW Clarity (test code = UCLAR) CLEAR Glucose (test code = UGLUC) NEGATIVE NEGATIVE N Bilirubin (test code = UBILI) NEGATIVE NEGATIVE N Ketones (test code = UKET) NEGATIVE NEGATIVE N Specific Hope (test code = 1.015 1.005-1.030 A USPGR) [...]
--- NOTE | 2020-06-28 15:21 | RAD REPORT ---
EXAM DESCRIPTION: US - Transvaginal Study Probe - 06/28/2020 2:46 pm CLINICAL HISTORY: pelvic pain, vaginal discharge Pelvic pain. COMPARISON: No comparisons FINDINGS: The uterus is normal in size, shape and echotexture. The uterus measures 9.8 x 6.2 x 5.1 c m. The endometrial stripe measures 7 mm, normal. Both ovaries are normal in size, shape and echotexture. The right ovary measures 2.7 x 1.8 x 1.5 cm. The left ovary measures 2.8 x 2.4 x 2.0 cm. No ovarian or parovarian lesions. No adnexal masses. Normal Doppler blood flow was demonstrated to both ovaries. No significant pelvic ascites. IMPRESSION: Unremarkable study.
[2020-06-28 16:00] LABS: Urine Blood NEGATIVE (NEG); Urine Glucose NEGATIVE (NEG); Urine Protein NEGATIVE (NEG); Urine Specific Gravity 1.025 (1.005-1.030)
--- NOTE | 2020-06-28 16:39 | EDPHYS ---
Physician Documentation [facility] Name: Jessica Ferrera Age: 20 yrs Sex: Female : 2000 Arrival Date: 06/28/2020 Time: 13:19 Bed 16 Private MD: ED Physician Bernard Scott HPI: 06/28 14:06 This 20 yrs old Female presents to ER via Ambulatory with complaints of jmm Vaginal Discharge. 14:06 The patient presents with vaginal discharge. Onset: The symptoms/episode began/occurred jmm gradually, 1 day(s) ago. Modifying factors: The symptoms are alleviated by nothing, the symptoms are aggravated by nothing. Associated signs and symptoms: Pertinent negatives: fever, pelvic pain. This is a 20 year old female 4 weeks post that presents to the ED with complaints of pelvic pain, patient states she developed abnormal discharge yesterday. Denies fever, vomiting. . Historical: - Allergies: 13:26 No Known Allergies; sv - PMHx: 13:26 None; sv - PSHx: 13:26 ; Cholecystectomy; sv - Immunization history:: Flu vaccine is not up to date. - Social history:: Smoking status: Patient denies any tobacco usage or history of. ROS: 14:06 Constitutional: Negative for fever, chills, and weight loss, Cardiovascular: Negative jmm for chest pain, palpitations, and edema, Respiratory: Negative for shortness of breath, cough, wheezing, and pleuritic chest pain, Abdomen/GI: Negative for abdominal pain, nausea, vomiting, diarrhea, and constipation. 14:06 : Positive for pelvic pain. 14:06 All other systems are negative. Exam: 14:06 Constitutional: This is a well developed, well nourished patient who is awake, alert, jmm and in no acute distress. Head/Face: atraumatic. Eyes: EOMI, no conjunctival erythema appreciated ENT: Moist Mucus Membranes Neck: Trachea midline, Supple Chest/axilla: Normal chest wall appearance and motion. Cardiovascular: Regular rate and rhythm. No edema appreciated Respiratory: Normal respirations, no respiratory distress appreciated Abdomen/GI: Non distended, soft Back: Normal ROM Skin: General appearance color normal MS/ Extremity: Moves all extremities, no obvious deformities appreciated, no edema noted to the lower extremities Neuro: Awake and alert, normal gait Psych: Behavior is normal, Mood is normal, Patient is cooperative and pleasant Vital Signs: 13:26 BP 93 / 70; Pulse 87; Resp 16; Temp 97.1; Pulse Ox 99% ; Height 5 ft. 5 in. (165.10 cm);sv MDM: 14:06 Patient medically screened. [facility] 16:37 Data reviewed: vital signs, nurses notes. Counseling: I had a detailed discussion with [facility] the patient and/or guardian regarding: the historical points, exam findings, and any diagnostic results supporting the discharge/admit diagnosis, lab results, radiology results, the need for outpatient follow up, to return to the emergency department if symptoms worsen or persist or if there are any questions or concerns that arise at home. ED course: Patient is alert and non toxic in appearance in the ED. Patient is advised to follow up with occupational therapy director for further evaluation. Patient understood and agrees with the plan of care. . 06/28 14:10 Order name: Urine Culture [facility] 06/28 14:10 Order name: GC (GONORR/CHLAMYDIA) Probe [facility] 06/28 14:10 Order name: US Transvaginal Study (Probe); Complete Time: 15:31 [facility] 06/28 14:11 Order name: Wet Prep; Complete Time: 16:22 [facility] 06/28 15:29 Order name: Urine --Ancillary (enter results); Complete Time: 16:22 [facility] 06/28 15:29 Order name: Urine Dipstick--Ancillary (enter results); Complete Time: 16:22 [facility] 06/28 14:10 Order name: Urine Dipstick-Ancillary (obtain specimen); Complete Time: 15:24 [facility] 06/28 14:19 Order name: Pelvic Exam Setup; Complete Time: 14:19 [facility] Administered Medications: 16:36 Drug: Rocephin (cefTRIAXone) 250 mg Route: IM; Site: right ventrogluteal; iw 16:36 Drug: AZITHromycin 1 grams Route: PO; iw 16:36 Drug: Flagyl 1 grams Route: PO; iw Disposition: 06/29 13:14 Co-signature as Attending Physician, Bernard Scott MD I agree with the assessment and kdr plan of care. Disposition: 06/28/20 16:39 Discharged to Home. Impression: Abdominal and pelvic pain. - Condition is Stable. - Discharge Instructions: Pelvic Pain, Female. - Work release form, Medication Reconciliation Form, Thank You Letter, Antibiotic Education, Prescription Opioid Use form. - Follow up: Private Physician; When: 2 - 3 days; Reason: Recheck today's complaints, Continuance of care, Re-evaluation by your physician. Signatures: Dispatcher [employer] Princess Rodarte RN RN Bernard Scott MD MD kdr Mickail, Joel, PA PA jmm Williams, Irene, RN RN iw Corrections: (The following items were deleted from the chart) 06/28 16:45 16:39 06/28/2020 16:39 Discharged to Home. Impression: Abdominal and pelvic pain. iw Condition is Stable. Forms are Medication Reconciliation Form, Thank You Letter, Antibiotic Education, Prescription Opioid Use. Follow up: Private Physician; When: 2 - 3 days; Reason: Recheck today's complaints, Continuance of care, Re-evaluation by your physician. mike
--- NOTE | 2020-06-28 16:39 | ER ---
Nurse's Notes [facility] Name: Jessica Ferrera Age: 20 yrs Sex: Female : 2000 Arrival Date: 06/28/2020 Time: 13:19 Bed 16 Private MD: Diagnosis: Abdominal and pelvic pain Presentation: 06/28 13:24 Chief complaint: Patient states: yellow/green vaginal discharge started yesterday. sv Reports recent about 4 weeks ago and has had sexual intercourse since then. Coronavirus screen: Client denies travel out of the [place] in the last 14 days. At this time, the client does not indicate any symptoms associated with coronavirus-19. Ebola Screen: No symptoms or risks identified at this time. Risk Assessment: Do you want to hurt yourself or someone else? Patient reports no desire to harm self or others. Onset of symptoms was June 27, 2020. 13:24 Method Of Arrival: Ambulatory sv 13:24 Acuity: QUYEN 4 sv 13:26 Initial Sepsis Screen: Does the patient meet any 2 criteria? No. Patient's initial sv sepsis screen is negative. Does the patient have a suspected source of infection? No. Patient's initial sepsis screen is negative. Triage Assessment: 13:27 General: Appears in no apparent distress. comfortable, Behavior is calm, cooperative, sv appropriate for age. Neuro: Level of Consciousness is awake, alert, obeys commands, Oriented to person, place, time, situation, Gait is steady. Respiratory: Respiratory effort is even, unlabored. : Reports discharge, green, yellow. Derm: Skin is normal. 14:00 Pain: Denies pain. iw Historical: - Allergies: 13:26 No Known Allergies; sv - PMHx: 13:26 None; sv - PSHx: 13:26 ; Cholecystectomy; sv - Immunization history:: Flu vaccine is not up to date. - Social history:: Smoking status: Patient denies any tobacco usage or history of. Screenin:27 Abuse screen: Denies threats or abuse. Denies injuries from another. Nutritional iw screening: No deficits noted. Tuberculosis screening: No symptoms or risk factors identified. Fall Risk None identified. Assessment: 15:27 Reassessment: Patient appears in no apparent distress at this time. Patient and/or iw family updated on plan of care and expected duration. Pain level reassessed. Patient is alert, oriented x 3, equal unlabored respirations, skin warm/dry/pink. 16:15 Reassessment: Patient appears in no apparent distress at this time. Patient and/or iw family updated on plan of care and expected duration. Pain level reassessed. Patient is alert, oriented x 3, equal unlabored respirations, skin warm/dry/pink. awaiting wet prep results. Vital Signs: 13:26 BP 93 / 70; Pulse 87; Resp 16; Temp 97.1; Pulse Ox 99% ; Height 5 ft. 5 in. (165.10 cm);sv ED Course: 13:19 Patient arrived in ED. as 13:25 Triage completed. sv 13:26 Arm band placed on. sv 13:30 Patient has correct armband on for positive identification. iw 14:01 Familia Valenzuela PA is PHCP. [facility] 14:01 Bernard Scott MD is Attending Physician. [facility] 14:04 Yeni Lund RN is Primary Nurse. iw 14:35 US Transvaginal Study (Probe) In Process Unspecified. EDMS 15:23 Assist provider with pelvic exam: Performed by Familia HENRY Specimens sent to lab. dh3 15:24 Urine Culture Sent. dh3 15:24 Wet Prep Sent. dh3 15:24 GC (GONORR/CHLAMYDIA) Probe Sent. dh3 16:45 Patient did not have IV access during this emergency room visit. iw Administered Medications: 16:36 Drug: Rocephin (cefTRIAXone) 250 mg Route: IM; Site: right ventrogluteal; iw 16:36 Drug: AZITHromycin 1 grams Route: PO; iw 16:36 Drug: Flagyl 1 grams Route: PO; iw Outcome: 16:39 Discharge ordered by . [facility] 16:44 Discharged to home ambulatory. iw 16:44 Condition: good 16:44 Discharge instructions given to patient, Instructed on discharge instructions, follow up and referral plans. Demonstrated understanding of instructions, follow-up care. 16:45 Patient left the ED. iw Signatures: Dispatcher [employer] EDMS Princess Gurrola RN RN Familia Valenzuela PA PA jmm Martinez, Amelia as Yeni Lund RN RN Preethi Stevens 3 Corrections: (The following items were deleted from the chart) 13:28 13:26 Pulse 87bpm; Resp 16bpm; Pulse Ox 99%; Temp 97.1F; sv sv
[2020-06-28] MEDS ORDERED: LIDOCAINE 1% MPF 2 ML AMPULE ONE (16:41)
[2020-06-28] MEDS ORDERED: AZITHROMYCIN 250 MG TAB ONE (16:41)
[2020-06-28] MEDS ORDERED: metroNIDAZOLE 500 MG TABLET ONE (16:41)
[2020-06-28] MEDS ORDERED: CEFTRIAXONE 250 MG/VIAL ONE (16:41)
[2020-06-28 16:51] VITALS: BP 93/70; TEMP 97.1; O2SAT 99
[2020-07-02 10:42] LABS: C.trachomatis RNA,TMA Not Detected (Not Detected)
== END 2020-06-28 16:45 | disposition home or self-care (01) ==
LOC: ER 13:17
DX: R10.2 Pelvic and perineal pain (principal)
CPT/HCPCS: 87088; 87086; 81025; 87210; 81003; 87590; 87490; 76830; 96372; 99284; J2001; J0696

== ENCOUNTER 2020-08-13 18:53 | Emergency (ER) | payer BC, OTHER ==
[2020-08-13] MEDS ORDERED: DIPHENHYDRAMINE 50 MG/ML VIAL ONE (20:02)
[2020-08-13] MEDS ORDERED: NA CHLORIDE 0.9% 50 ML ONE (20:02)
[2020-08-13] MEDS ORDERED: NA CHLORIDE 0.9% 1,000 ML ONE (20:02)
[2020-08-13] MEDS ORDERED: METOCLOPRAMIDE 10 MG/2mL INJ ONE (20:02)
[2020-08-13 20:10] LABS: Urine Blood NEGATIVE (NEG); Urine Glucose NEGATIVE (NEG); Urine Protein NEGATIVE (NEG); Urine Specific Gravity >1.030 (1.005-1.030); Urine pH 5.5 (5.0-7.0)
[2020-08-13 20:10] LABS: Urine Specific Gravity >1.030 (1.005-1.030)
[2020-08-13 20:18] LABS: Absolute Lymphocytes (CBC) 3.7 K/uL (0.7-4.9); Basophils % 0.4 % (0-1.3); Hematocrit 39.5 % (36.0-45.0); Lymphocytes % 50.2 % (15.3-44.8); MPV 8.4 fL (7.6-11.3); RBC Red Blood Cell Count 4.66 M/uL (3.86-4.86)
[2020-08-13 20:31] LABS: Albumin 4.2 g/dL (3.4-5.0); Bilirubin Total 0.4 mg/dL (0.2-1.0); Potassium 4.2 mmol/L (3.5-5.1); Protein, Total 7.9 g/dL (6.4-8.2)
[2020-08-13 22:34] LABS: Blood Morphology Comment NOT SEEN (NOT SEEN); Platelet Estimate ADEQ
--- NOTE | 2020-08-14 07:23 | EDPHYS ---
Physician Documentation [facility] Name: Jessica Ferrera Age: 20 yrs Sex: Female : 2000 Arrival Date: 08/13/2020 Time: 18:55 Bed 6 Private MD: ED Physician Prisca Theodore HPI: 08/13 20:15 This 20 yrs old Female presents to ER via Ambulatory with complaints of ma2 Dizziness, Near Syncope. 20:15 The patient presents with feeling faint, lightheadedness. Onset: The symptoms/episode ma2 began/occurred gradually, 2 day(s) ago. Associated signs and symptoms: Pertinent negatives: ataxia, chest pain, confusion, focal weakness, headache, palpitations, shortness of breath, syncope. Severity of symptoms: At their worst the symptoms were mild in the emergency department the symptoms have resolved. The patient has experienced similar episodes in the past. 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 - Social history:: Smoking status: Patient denies any tobacco usage or history of. Patient/guardian denies using alcohol, street drugs, Patient/guardian denies using The patient lives with family. - Family history:: not pertinent. ROS: 20:15 Constitutional: Negative for fever, chills, and weight loss. ma2 20:15 All other systems are negative. Exam: 20:15 Constitutional: This is a well developed, well nourished patient who is awake, alert, ma2 and in no acute distress. Head/Face: Normocephalic, atraumatic. Eyes: Pupils equal round and reactive to light, extra-ocular motions intact. Lids and lashes normal. Conjunctiva and sclera are non-icteric and not injected. Cornea within normal limits. Periorbital areas with no swelling, redness, or edema. ENT: Nares patent. No nasal discharge, no septal abnormalities noted. Tympanic membranes are normal and external auditory canals are clear. Oropharynx with no redness, swelling, or masses, exudates, or evidence of obstruction, uvula midline. Mucous membranes moist. Neck: Trachea midline, no thyromegaly or masses palpated, and no cervical lymphadenopathy. Supple, full range of motion without nuchal rigidity, or vertebral point tenderness. No Meningismus. Chest/axilla: Normal chest wall appearance and motion. Nontender with no deformity. No lesions are appreciated. Cardiovascular: Regular rate and rhythm with a normal S1 and S2. No gallops, murmurs, or rubs. Normal PMI, no JVD. No pulse deficits. Respiratory: Lungs have equal breath sounds bilaterally, clear to auscultation and percussion. No rales, rhonchi or wheezes noted. No increased work of breathing, no retractions or nasal flaring. Abdomen/GI: Soft, non-tender, with normal bowel sounds. No distension or tympany. No guarding or rebound. No evidence of tenderness throughout. Back: No spinal tenderness. No costovertebral tenderness. Full range of motion. Skin: Warm, dry with normal turgor. Normal color with no rashes, no lesions, and no evidence of cellulitis. MS/ Extremity: Pulses equal, no cyanosis. Neurovascular intact. Full, normal range of motion. Neuro: Awake and alert, GCS 15, oriented to person, place, time, and situation. Cranial nerves II-XII grossly intact. Motor strength 5/5 in all extremities. Sensory grossly intact. Cerebellar exam normal. Normal gait. Vital Signs: 19:18 BP 102 / 70; Pulse 78; Resp 18 S; Temp 97.4(TE); Pulse Ox 100% on R/A; Weight 63.5 kg ca1 (R); Height 5 ft. 5 in. (165.10 cm) (R); Pain 5/10; 21:08 BP 105 / 70; Pulse 70; Resp 18; Pulse Ox 100% on R/A; mg2 19:18 Body Mass Index 23.30 (63.50 kg, 165.10 cm) ca1 MDM: 19:47 Patient medically screened. ma2 20:15 Differential diagnosis: dehydration, uti vs migrain headache . ma2 08/13 20:10 Order name: EKG - Nurse/Tech; Complete Time: 20:54 ma2 Administered Medications: 20:00 Drug: NS 0.9% 1000 ml Route: IV; Rate: 1 bolus; Site: right antecubital; 21:34 Follow up: Response: No adverse reaction; IV Status: Completed infusion; IV Intake: mg2 1000ml 20:02 Drug: Benadryl 50 mg Route: IVP; Site: right antecubital; 21:34 Follow up: Response: No adverse reaction; Marked relief of symptoms mg2 20:04 Drug: Reglan 10 mg Route: IVP; Site: right antecubital; 21:34 Follow up: Response: No adverse reaction mg2 Disposition: 08/13/20 21:21 Discharged to Home. Impression: Headache. - Condition is Stable. - Discharge Instructions: Migraine Headache, [id number]. - Prescriptions for Reglan 10 mg Oral Tablet - take 1 tablet by ORAL route every 6 hours . take 30 minutes before meals and at bedtime; 100 tablet. Diclofenac Sodium 75 mg Oral Tablet Sustained Release - take 1 tablet by ORAL route 2 times per day; 30 tablet. - Medication Reconciliation Form, Thank You Letter, Antibiotic Education, Prescription Opioid Use form. - Follow up: Private Physician; When: Tomorrow; Reason: Continuance of care. Signatures: Melita Goins Prisca Theodore MD MD ma2 Ernie Viveros RN RN mg2 Brook Powell RN RN ca1 Corrections: (The following items were deleted from the chart) 21:35 21:21 08/13/2020 21:21 Discharged to Home. Impression: Headache. Condition is Stable. mg2 Forms are Medication Reconciliation Form, Thank You Letter, Antibiotic Education, Prescription Opioid Use. Follow up: Private Physician; When: Tomorrow; Reason: Continuance of care. ma2
--- NOTE | 2020-08-14 07:24 | ER ---
Nurse's Notes [facility] Name: Jessica Ferrera Age: 20 yrs Sex: Female : 2000 Arrival Date: 08/13/2020 Time: 18:55 Bed 6 Private MD: Diagnosis: Headache Presentation: 08/13 19:18 Chief complaint: Patient states: 1.5 hrs ago, I was walking around my house, got light ca1 headed, dizzy and I lost all my vision. R eye was really blurry, and I couldn't see on the L eye. It lasted about 30 minutes. I almost fell but caught myself. About 2 weeks ago, my L eye like I was getting hot flashes in it. Symptoms resolved at this time. But I have a really bad headache and I am nauseated. Coronavirus screen: Client denies travel out of the [place] in the last 14 days. nausea, Client presents with at least one sign or symptom that may indicate coronavirus-19. Standard/surgical mask placed on the client. Provider contacted for isolation considerations. Ebola Screen: Patient negative for fever greater than or equal to 101.5 degrees Fahrenheit, and additional compatible Ebola Virus Disease symptoms Patient denies exposure to infectious person. Patient denies travel to an Ebola-affected area in the 21 days before illness onset. No symptoms or risks identified at this time. Initial Sepsis Screen: Does the patient meet any 2 criteria? No. Patient's initial sepsis screen is negative. Does the patient have a suspected source of infection? No. Patient's initial sepsis screen is negative. Risk Assessment: Do you want to hurt yourself or someone else? Patient reports no desire to harm self or others. Onset of symptoms was August 13, 2020. 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 - Social history:: Smoking status: Patient denies any tobacco usage or history of. Patient/guardian denies using alcohol, street drugs, Patient/guardian denies using The patient lives with family. - Family history:: not pertinent. Screenin:45 Abuse screen: Denies threats or abuse. Denies injuries from another. Nutritional mg2 screening: No deficits noted. Tuberculosis screening: No symptoms or risk factors identified. Fall Risk None identified. Assessment: 19:44 General: Appears in no apparent distress. comfortable, Behavior is calm, cooperative. mg2 Pain: Denies pain. Neuro: Level of Consciousness is awake, alert, obeys commands, Oriented to person, place, time, situation. Neuro: Reports dizziness. Cardiovascular: Capillary refill < 3 seconds Patient's skin is warm and dry. Respiratory: Airway is patent Respiratory effort is even, unlabored, Respiratory pattern is regular, symmetrical. GI: No signs and/or symptoms were reported involving the gastrointestinal system. : No signs and/or symptoms were reported regarding the genitourinary system. EENT: No signs and/or symptoms were reported regarding the EENT system. Derm: Skin is intact, is healthy with good turgor, Skin is pink, warm \T\ dry. normal. Musculoskeletal: Circulation, motion, and sensation intact. Capillary refill < 3 seconds. 21:34 Reassessment: Patient appears in no apparent distress at this time. Patient denies pain mg2 at this time. Patient states feeling better. Patient states symptoms have improved. Vital Signs: 19:18 BP 102 / 70; Pulse 78; Resp 18 S; Temp 97.4(TE); Pulse Ox 100% on R/A; Weight 63.5 kg ca1 (R); Height 5 ft. 5 in. (165.10 cm) (R); Pain 5/10; 21:08 BP 105 / 70; Pulse 70; Resp 18; Pulse Ox 100% on R/A; mg2 19:18 Body Mass Index 23.30 (63.50 kg, 165.10 cm) ca1 ED Course: 18:55 Patient arrived in ED. ag5 19:21 Triage completed. ca1 19:22 Arm band placed on right wrist. ca1 19:45 Patient has correct armband on for positive identification. mg2 19:45 No provider procedures requiring assistance completed. mg2 19:47 Brook Powell RN is Primary Nurse. ca1 19:47 Prisca Theodore MD is Attending Physician. ma2 20:00 Inserted saline lock: 20 gauge in right antecubital area, using aseptic technique. mg2 Blood collected. by FAUSTO Hua. 21:34 IV discontinued, intact, bleeding controlled, No redness/swelling at site. Pressure mg2 dressing applied. Administered Medications: 20:00 Drug: NS 0.9% 1000 ml Route: IV; Rate: 1 bolus; Site: right antecubital; 21:34 Follow up: Response: No adverse reaction; IV Status: Completed infusion; IV Intake: mg2 1000ml 20:02 Drug: Benadryl 50 mg Route: IVP; Site: right antecubital; 21:34 Follow up: Response: No adverse reaction; Marked relief of symptoms mg2 20:04 Drug: Reglan 10 mg Route: IVP; Site: right antecubital; 21:34 Follow up: Response: No adverse reaction mg2 Intake: 21:34 IV: 1000ml; Total: 1000ml. mg2 Outcome: 21:21 Discharge ordered by . [facility] 21:34 Discharged to home ambulatory. mg2 21:34 Condition: stable 21:34 Discharge instructions given to patient, Instructed on discharge instructions, follow up and referral plans. medication usage, Demonstrated understanding of instructions, follow-up care, medications, Prescriptions given X 2. 21:35 Patient left the ED. mg2 Signatures: Melita Goins Prisca Theodore MD MD [facility] Ernie Viveros RN RN mg2 Brook Powell RN RN ca1 Gilbert Stroud ag5
--- NOTE | 2020-08-15 06:10 | EKG ---
Test Date: 2020-08-13 Test Time: 20:50:50 Camera Maker: MG MEASUREMENT RESULTS: Intervals: Rate: 67 MN: 204 QRSD: 100 QT: 412 QTc: 435 Warren: P: 19 MN: 204 QRS: 40 T: 38 INTERPRETIVE STATEMENTS: Normal sinus rhythm Incomplete right bundle branch block Septal infarct, age undetermined Abnormal ECG No previous ECG available for comparison Electronically Signed On 08-15-20 06:07:30 SURGICAL DRESSING MAKER by Dami Lockwood
== END 2020-08-13 21:35 | disposition home or self-care (01) ==
LOC: ER 18:53
DX: R51.9 Headache, unspecified (principal)
CPT/HCPCS: 93005; 85025; 36415; 81025; 81003; 80053; J2765; J1200; J7030; 96361; 96374; 96375; 99284

== ENCOUNTER 2024-04-15 17:44 | Emergency (ER) | payer SELFPAY ==
--- OUTSIDE RECORDS SUMMARY | 2024-04-15 17:50 | XMS REPORT | Continuity of Care Document ---
Author Name Unknown Address [address] [facility] [address] [place] [address] [facility] Address [address] [facility] [address] [place] [address] Support Name Relationship Address Phone Isabel Zee Mother Unknown [phone] Hanna Zee Personal Relationship [address] [place] [address] IbanNestor larain Emergency Contact [address] [place] [address] MD CRISTY MARSH Emergency Provider [address] [place] [address] ISABEL ZEE Parent [address] [facility] [address] [address] [place] [address] Unavailable JÚNIOR LEW Unknown Unavailable J CARLOS ZEE OtherRelationship [address] [place] [address] Unavailable MD KENAN DUMONT Emergency Provider [address] [place] [phone] MD ULICES MORGAN Emergency Provider [address] [place] [address] MD JOLIE SON JR Emergency Provider [address] [place], [place] Unavailable Care Team Providers Care Program Attendant Name Role Phone PCP, NO Primary Care Physician Unavailab KELBY Ponce Attending Clinician Unavailable JOLIE MCCOLLUM Attending Clinician UnavailRAMAKRISHNA Graham Attending Clinician Unavailable JOLIE SON Attending Clinician Unavailable ULICES MORGAN Attending Clinician Unavailable KENAN DUMONT Attending Clinician Unava ilable KELBY RICH Attending Clinician Unavailable [facility] Attending Clinician Unav ailable PAM NAIR Attending Clinician Unavailable SHERICE VELASQUEZ Attending Clinician Unavailable SHERICE VELASQUEZ Attending Clinician Unavailable RAMAKRISHNA MILLS Admitting Clinician Unavailable PAM NAIR Admitting Clinician Unavailable SHERICE VELASQUEZ Admitting Clinician Unavailable Payers Payer Name Policy Type Policy Number Effective Date Expirati on Date Source [id number] 1959 00:00:00 [place] [address] [id number] 2020 00:00:00 [facility] SUPERIOR [id number] 2021 00:00:00 [place] [id number] [place] [id number] [facility] rit - [facility] COMM[employer]ITY HE[employer] CHOICE MEDICAID [id number] 2019 00:00:00 [employer] [place] - OUT OF STATE [id number] 2018 00:00:00 [facility] [id number] 2019 00:00:00 2019 00:00:00 Problems Condition Name Condition Details Condition Category Status Onset Date Resolution Date Last Treatment Date Treating Clinician Comments Source Regular uterine contractio ns Regular uterine contractio ns Problem Active 05-24 00:00: 00 [facility] (LUF/LI V/SA) Patient currently Patient currently Problem Active 05-24 00:00: 00 [facility] (LUF/LI V/SA) Biliary dyskinesia Problem Active 2013-09 016 00:00: 00 [facility] Missed period Missed period Problem [facility] [id number] Endometrio sis Problem [facility] [id number] Chronic tonsilliti s Problem [facility] [id number] Chronic cryptitis of tonsil Problem [facility] [id number] Encounter for screening of mother Problem [facility] Endometria l disorder Endometria l disorder Problem Active [facility] (LUF/LI V/SA) Disorder of gallbladde r Disorder of gallbladde r Problem Active [facility] (LUF/LI V/SA) Cough Problem Active [facility] Sinusitis Problem Active [facility] Right lower quadrant abdominal pain Problem Active [facility] Constipati on Problem Active [facility] Upper respirator y tract infection Problem Inactiv e [facility] Contact dermatitis due to poison frances Problem Inactiv e [facility] Pain of round ligament during Problem Inactiv e [facility] Muscle strain Problem Inactiv e [facility] Vaginal discharge Problem Inactiv e [facility] Pharyngiti s Problem Inactiv e [facility] Viral upper respirator y tract infection Problem Inactiv e [facility] Tonsilliti s Problem Inactiv e [facility] Vomiting and diarrhea Problem Inactiv e [facility] Gastroesop hageal reflux disease Problem Inactiv e [facility] Female pelvic inflammato ry disease Problem Inactiv e [facility] Influenza due to influenza virus, type A, human Problem Active [facility] Fever in pediatric patient Problem Active [facility] Urinary tract infection Problem Active [facility] Abdominal pain Problem Active [facility] Viral infection Problem Active [facility] Influenza Problem Active [facility] Paronychia Problem Inactiv e [facility] Allergies, Adverse Reactions, Alerts Allergy Name Allergy Type Status Severity Reaction(s) Onset Date Inactive Date Treating Clinician Comments Source NO KNOWN ALLERGIE S Drug Class Active [facility] NKA DA Active Unknown [facility] (/LI V/) sertrali ne sertrali ne Active hives [facility] Hydrocod one DA Active Unknown [facility] (/LI V/) Social History Social Habit Start Date Stop Date Quantity Comments Source History of Tobacco Use [facility] Sex Assigned At [facility] Smoking Status Start Date Stop Date Source Current every day smoker [facility] ([facility]/) Never Smoker [facility] Medications Ordered Medication Name Filled Medication Name Start Date Stop Date Current Medication? Ordering Clinician Indication Dosage Frequency Signature (SIG) Comments Components Source Amoxicillin /Clavulanat e Potassium (Augmentin 875 Mg) 1 Each TABLET 01-18 11:08: 00 No 875mg Twice A Day [facility] Hydroxyzine Hcl (Atarax) 25 Mg TAB 01-03 09:59: 00 No 25mg Three Times A Day as needed for Itching [facility] Prednisone (Deltasone) 50 Mg TAB 01-03 09:59: 00 No 50mg Daily [facility] Hydroxyzine Hcl (Atarax) 25 Mg TAB 01-03 09:59: 00 No 25mg Three Times A Day as needed for Itching [facility] Prednisone (Deltasone) 50 Mg TAB 01-03 09:59: 00 No 50mg Daily [facility] Trimethopri m/Sulfameth oxazole (Bactrim Ds, Septra Ds, Sulfatrim Ds) 1 Each TAB 11-21 17:11: 00 No 1 Twice A Day [facility] Trimethopri m/Sulfameth oxazole (Bactrim Ds, Septra Ds, Sulfatrim Ds) 1 Each TAB 11-21 17:11: 00 12-02 00:00 :00 No 1 Twice A Day [facility] Trimethopri m/Sulfameth oxazole (Bactrim Ds, Septra Ds, Sulfatrim Ds) 1 Each TAB 11-21 17:11: 00 12-02 00:00 :00 No 1 Twice A Day [facility] D-Chlorphen deana/Pse/Chl ophedian Liq (Vanacof Liquid) 473 Ml LIQUID 09-23 20:43: 00 No 10mL Every 6 Hours as needed for Cough And/Or Congestion [facility] D-Chlorphen deana/Pse/Chl ophedian Liq (Vanacof Liquid) 473 Ml LIQUID 09-23 20:43: 00 No 10mL Every 6 Hours as needed for Cough And/Or Congestion [facility] D-Chlorphen deana/Pse/Chl ophedian Liq (Vanacof Liquid) 473 Ml LIQUID 09-23 20:43: 00 No 10mL Every 6 Hours as needed for Cough And/Or Congestion [facility] Loestrin 10/02 Loestrin 10/02 00:00: 00 Yes Sherice Velasquez 1 tablet [facility] Loestrin Fe 10/02 1-20 MG-MCG Loestrin Fe 10/02 1-20 MG-MCG 2018-09 00:00: 00 No 1{table t} QD Loestrin Fe 10/02 1-20 MG-[facility] Loestrin Fe 10/02 1-20 MG-MCG Loestrin Fe 10/02 1-20 MG-MCG 2018-09 00:00: 00 No 1{table t} QD Loestrin Fe 10/02 1-20 [facility] Acetaminoph en 2018-09 13:14: 00 No 1000mg [facility] Doxycycline Monohydrate 2018-09 13:14: 00 No 100mg [facility] Ibuprofen 2018-09 13:14: 00 No 400mg [facility] Tramadol Hcl 2018-09 13:14: 00 No 50mg [facility] Acetaminoph en (Tylenol) 500 Mg TAB 2018-09 13:14: 00 No 1000mg Three Times A Day as needed for Pain [facility] Doxycycline Monohydrate (Doxycyclin e) 100 Mg CAPSULE 2018-09 13:14: 00 No 100mg Twice A Day for Pelvic Inflammato ry Disease [facility] Acetaminoph en (Tylenol) 500 Mg TAB 2018-09 13:14: 00 No 1000mg Three Times A Day as needed for Pain [facility] Doxycycline Monohydrate (Doxycyclin e) 100 Mg CAPSULE 2018-09 13:14: 00 No 100mg Twice A Day for Pelvic Inflammato ry Disease [facility] Acetaminoph en 2018-09 13:14: 00 No 1000mg Three Times A Day as needed for Pain [facility] Doxycycline Monohydrate 2018-09 13:14: 00 No 100mg Twice A Day for Pelvic Inflammato ry Disease [facility] Ibuprofen 2018-09 13:14: 00 No 400mg Three Times A Day as needed for Pain [facility] Tramadol Hcl 2018-09 13:14: 00 No 50mg Every 6 Hours as needed for Pain [facility] Acetaminoph en (Tylenol) 500 Mg TAB 2018-09 13:14: 00 No 1000mg Three Times A Day as needed for Pain [facility] Doxycycline Monohydrate (Doxycyclin e) 100 Mg CAPSULE 2018-09 13:14: 00 No 100mg Twice A Day for Pelvic Inflammato ry Disease [facility] Ibuprofen (Motrin) 400 Mg TAB 2018-09 13:14: 00 07-20 00:00 :00 No 400mg Three Times A Day as needed for Pain [facility] Tramadol Hcl (Ultram) 50 Mg TAB 2018-09 13:14: 00 07-20 00:00 :00 No 50mg Every 6 Hours as needed for Pain [facility] Ibuprofen (Motrin) 400 Mg TAB 2018-09 13:14: 07-20 00:00 :00 No 400mg Three Times A Day as needed for Pain [facility] Tramadol Hcl (Ultram) 50 Mg TAB 2018-09 13:14: 00 07-20 00:00 :00 No 50mg Every 6 Hours as needed for Pain [facility] Ibuprofen (Motrin) 400 Mg TAB 2018-09 13:14: 00 07-20 00:00 :00 No 400mg Three Times A Day as needed for Pain [facility] Tramadol Hcl (Ultram) 50 Mg TAB 2018-09 13:14: 00 07-20 00:00 :00 No 50mg Every 6 Hours as needed for Pain [facility] Ortho Tri-Cyclen (28) Ortho Tri-Cyclen (28) 9-10 00:00: 00 Yes Sherice Velasquez 1 tablet [facility] Ondansetron Hcl 02-27 09:07: 00 No 4mg [facility] Pantoprazol e 02-27 09:07: 00 No 40mg [facility] Ondansetron Hcl (Zofran Odt) 4 Mg TAB.RAPDIS 02-27 09:07: 00 No 4mg Every 4 - 6 Hours as needed for Nausea [facility] Pantoprazol e (Protonix) 40 Mg TABEC 02-27 09:07: 00 No 40mg Daily [facility] Ondansetron Hcl (Zofran Odt) 4 Mg TAB.RAPDIS 02-27 09:07: 00 No 4mg Every 4 - 6 Hours as needed for Nausea [facility] Pantoprazol e (Protonix) 40 Mg TABEC 02-27 09:07: 00 No 40mg Daily [facility] Ondansetron Hcl (Zofran Odt) 4 Mg TAB.RAPDIS 02-27 09:07: 00 No 4mg Every 4 - 6 Hours as needed for Nausea [facility] Pantoprazol e (Protonix) 40 Mg TABEC 02-27 09:07: 00 No 40mg Daily [facility] Ondansetron Hcl 02-27 09:07: 00 No 4mg Every 4 - 6 Hours as needed for Nausea [facility] Pantoprazol e 02-27 09:07: 00 No 40mg Daily [facility] Ciprofloxac in (Cipro) 500 Mg TAB 02-27 09:07: 00 03-03 00:00 :00 No 500mg Twice A Day [facility] Ciprofloxac in (Cipro) 500 Mg TAB 02-27 09:07: 00 03-03 00:00 :00 No 500mg Twice A Day [facility] Ciprofloxac in (Cipro) 500 Mg TAB 02-27 09:07: 00 03-03 00:00 :00 No 500mg Twice A Day [facility] Depo-Scales Inspector a Depo-Scales Inspector a 01-11 00:00: 00 Yes Sherice Velasquez 1 ml [facility] Depo-Scales Inspector a 150 MG/ML Depo-Scales Inspector a 150 MG/ML 01-11 00:00: 00 No 1{ml} Depo-Prove ra 150 MG/ML Depo-Scales Inspector a 150 MG/ML Depo-Scales Inspector a 150 MG/ML 01-11 00:00: 00 No 1{ml} Depo-Prove ra 150 MG/ML medroxyprog esterone ac medroxyprog esterone ac 01-11 00:00: 00 No 150mg [facility] Ibuprofen (Motrin) 600 Mg TAB 01-29 19:30: 00 09-28 00:00 :00 No 600mg Tid Prn as needed for Pain [facility] Ibuprofen (Motrin) 600 Mg TAB 01-29 19:30: 00 09-28 00:00 :00 No 600mg Tid Prn as needed for Pain [facility] Ibuprofen (Motrin) 600 Mg TAB 01-29 19:30: 00 09-28 00:00 :00 No 600mg Tid Prn as needed for Pain [facility] Metronidazo le (Flagyl) 500 Mg TAB 06-12 22:08: 00 01-29 00:00 :00 No 500mg Twice A Day [facility] Metronidazo le (Flagyl) 500 Mg TAB 06-12 22:08: 00 01-29 00:00 :00 No 500mg Twice A Day [facility] Metronidazo le (Flagyl) 500 Mg TAB 06-12 22:08: 00 01-29 00:00 :00 No 500mg Twice A Day [facility] Promethazin e HCl Promethazin e HCl 11-11 00:00: 00 Yes Sherice Velasquez 1 tab q 4-6 hrs prn nausia vomiting [facility] Promethazin e HCl 25 MG Promethazin e HCl 25 MG 11-11 00:00: 00 No Promethazi ne HCl 25 MG Promethazin e HCl 25 MG Promethazin e HCl 25 MG 11-11 00:00: 00 No Promethazi ne HCl 25 MG Ondansetron Hcl (Zofran Odt) 4 Mg TAB.FAITHDIS 05-09 08:51: 00 01-29 00:00 :00 No 4mg Three Times A Day as needed for Nausea / Vomiting [facility] Tramadol Hcl (Ultram) 50 Mg TAB 05-09 08:51: 00 01-29 00:00 :00 No 50mg Four Times Daily as needed for Pain [facility] Ondansetron Hcl (Zofran Odt) 4 Mg TAB.RAPDIS 05-09 08:51: 00 01-29 00:00 :00 No 4mg Three Times A Day as needed for Nausea / Vomiting [facility] Tramadol Hcl (Ultram) 50 Mg TAB 05-09 08:51: 00 01-29 00:00 :00 No 50mg Four Times Daily as needed for Pain [facility] Ondansetron Hcl (Zofran Odt) 4 Mg TAB.RAPDIS 05-09 08:51: 00 01-29 00:00 :00 No 4mg Three Times A Day as needed for Nausea / Vomiting [facility] Tramadol Hcl (Ultram) 50 Mg TAB 05-09 08:51: 00 01-29 00:00 :00 No 50mg Four Times Daily as needed for Pain [facility] Amoxicillin /Clavulanat e Potassium (Augmentin 875 Mg) 875 Mg TABLET 12-21 22:01: 01-29 00:00 :00 No 875mg Twice A Day [facility] D-Methorpha n Hb/P-Epd Hcl/Bpm Syrup (Bromfed Dm Cough Syrup) 118 Ml SYRUP 12-21 22:01: 01-29 00:00 :00 No 5mL Every 4 Hours [facility] Fluticasone Propionate (Flonase 0.05% Atilio Spr) 16 Gm INHA 12-21 22:01: 01-29 00:00 :00 No 2 Daily [facility] Amoxicillin /Clavulanat e Potassium (Augmentin 875 Mg) 875 Mg TABLET 12-21 22:01: 01-29 00:00 :00 No 875mg Twice A Day [facility] D-Methorpha n Hb/P-Epd Hcl/Bpm Syrup (Bromfed Dm Cough Syrup) 118 Ml SYRUP 12-21 22:01: 01-29 00:00 :00 No 5mL Every 4 Hours [facility] Fluticasone Propionate (Flonase 0.05% Atilio Spr) 16 Gm INHA 12-21 22:01: 01-29 00:00 :00 No 2 Daily [facility] Amoxicillin /Clavulanat e Potassium (Augmentin 875 Mg) 875 Mg TABLET 12-21 22:01: 00 01-29 00:00 :00 No 875mg Twice A Day [facility] D-Methorpha n Hb/P-Epd Hcl/Bpm Syrup (Bromfed Dm Cough Syrup) 118 Ml SYRUP 12-21 22:01: 00 01-29 00:00 :00 No 5mL Every 4 Hours [facility] Fluticasone Propionate (Flonase 0.05% Atilio Spr) 16 Gm INHA 12-21 22:01: 00 01-29 00:00 :00 No 2 Daily [facility] Trimethopri m/Sulfameth oxazole (Bactrim Ds, Septra Ds, Sulfatrim Ds) 1 Tab TAB 05-11 12:42: 00 06-29 00:00 :00 No 1 Twice A Day [facility] Trimethopri m/Sulfameth oxazole (Bactrim Ds, Septra Ds, Sulfatrim Ds) 1 Tab TAB 05-11 12:42: 00 06-29 00:00 :00 No 1 Twice A Day [facility] Trimethopri m/Sulfameth oxazole (Bactrim Ds, Septra Ds, Sulfatrim Ds) 1 Tab TAB 05-11 12:42: 00 06-29 00:00 :00 No 1 Twice A Day [facility] Oseltamivir Phosphate (Tamiflu) 75 Mg CAP 12-27 18:52: 00 06-29 00:00 :00 No 75mg Twice A Day [facility] Oseltamivir Phosphate (Tamiflu) 75 Mg CAP 12-27 18:52: 00 06-29 00:00 :00 No 75mg Twice A Day [facility] Oseltamivir Phosphate (Tamiflu) 75 Mg CAP 12-27 18:52: 00 06-29 00:00 :00 No 75mg Twice A Day [facility] PNV PNV Yes Sherice Velasquez not defined [facility] Triamcinolo ne Acetonide Triamcinolo ne Acetonide Yes Sherice Rochaer 1 applicatio n to affected area on body [facility] Flagyl Flagyl Yes Sherice Ron 1 tablet [facility] Paragard Intrauterin e Copper Paragard Intrauterin e Copper Yes Sherice Ron as directed [facility] Iron 325 (65 Fe) MG Iron 325 (65 Fe) MG No 1{table t} QD Iron 325 (65 Fe) MG Triamcinolo ne Acetonide 0.1 % Triamcinolo ne Acetonide 0.1 % No BID Triamcinol one Acetonide 0.1 % PNV PNV No PNV Paragard Intrauterin e Copper - Paragard Intrauterin e Copper - No Paragard Intrauteri ne Copper - Flagyl 500 MG Flagyl 500 MG No 1{table t} BID Flagyl 500 MG Flagyl 500 MG Flagyl 500 MG No 1{table t} BID Flagyl 500 MG Triamcinolo ne Acetonide 0.1 % Triamcinolo ne Acetonide 0.1 % No BID Triamcinol one Acetonide 0.1 % Paragard Intrauterin e Copper - Paragard Intrauterin e Copper - No Paragard Intrauteri ne Copper - Vit,Calc76/ Iron/Folic No [address] [place] [facility] Integra Plus 125 mg-1 mg Integra Plus 125 mg-1 mg Yes 1cap QD [facility] (LUF/LI V/SA) ondansetron 4 mg disintegrat ing tablet ondansetron 4 mg disintegrat ing tablet Yes 4mg 4xD orally every 6 hours as needed. (as needed for nausea and vomiting) [facility] ([facility]F/LI V/SA) tramadol hydrochlori de 50 MG Oral Tablet tramadol hydrochlori de 50 MG Oral Tablet Yes 50mg 4xD orally every 6 hours as needed. (as needed for pain) [facility] (LUF/LI V/SA) ondansetron 4 mg disintegrat ing tablet ondansetron 4 mg disintegrat ing tablet Yes 4mg 4xD [facility] (LUF/LI V/SA) tramadol hydrochlori de 50 MG Oral Tablet tramadol hydrochlori de 50 MG Oral Tablet Yes 50mg 4xD [facility] (LUF/LI V/SA) Vit,Calc76/ Iron/Folic (Prenatabs Rx Tablet) 1 Each TABLET No 1 Daily [facility] Vit,Calc76/ Iron/Folic (Prenatabs Rx Tablet) 1 Each TABLET No 1 Daily [facility] Vit,Calc76/ Iron/Folic (Prenatabs Rx Tablet) 1 Each TABLET No 1 Daily [facility] Vit,Calc76/ Iron/Folic No 1 Daily [facility] Aripiprazol e (Abilify) 5 Mg TABLET 09-28 00:00 :00 No 5mg Daily [facility] Topiramate (Topamax) 50 Mg TAB 09-28 00:00 :00 No 50mg Daily [facility] Aripiprazol e (Abilify) 5 Mg TABLET 09-28 00:00 :00 No 5mg Daily [facility] Topiramate (Topamax) 50 Mg TAB 09-28 00:00 :00 No 50mg Daily [facility] Aripiprazol e (Abilify) 5 Mg TABLET 09-28 00:00 :00 No 5mg Daily [facility] Topiramate (Topamax) 50 Mg TAB 09-28 00:00 :00 No 50mg Daily [facility] Acetaminoph en/Codeine Phosphate (Tylenol #3) 1 Tab TAB 01-29 00:00 :00 No Every 3 - 4 Hours as needed for Pain [facility] Acetaminoph en/Codeine Phosphate (Tylenol #3) 1 Tab TAB 01-29 00:00 :00 No Every 3 - 4 Hours as needed for Pain [facility] Acetaminoph en/Codeine Phosphate (Tylenol #3) 1 Tab TAB 01-29 00:00 :00 No Every 3 - 4 Hours as needed for Pain [facility] Acetaminoph en (Tylenol) 325 Mg TAB 12-19 00:00 :00 No 650mg Q 4 Hrs Prn [facility] Acetaminoph en/Hydrocod one Bitart ([place] 5/325) 1 Tab TAB 12-19 00:00 :00 No 1 Every 4 Hours as needed for Prn [facility] Albuterol/I pratropium (Duoneb Neb Soln) 3 Ml SOLN 12-19 00:00 :00 No 3mL Q4 Prn Sob [facility] Atorvastati n Calcium (Lipitor) 20 Mg TAB 12-19 00:00 :00 No 20mg Bedtime [facility] Carvedilol (Coreg) 3.125 Mg TAB 12-19 00:00 :00 No 3.125mg Twice A Day [facility] Guaifenesin (Robitussin Liq) 100 Mg/5 Ml SYRUP 12-19 00:00 :00 No 100mg Q 4 Hrs Prn Cough [facility] Ipratropium [place] (Atrovent 0.06% Nasal [place]) 42 Mcg SPRAY 12-19 00:00 :00 No 2 Twice A Day [facility] Promethazin e Hcl (Phenergan) 25 Mg TAB 12-19 00:00 :00 No 25mg as needed for Q 6 Prn [facility] Acetaminoph en (Tylenol) 325 Mg TAB 12-19 00:00 :00 No 650mg Q 4 Hrs Prn [facility] Acetaminoph en/Hydrocod one Bitart ([place] 5/325) 1 Tab TAB 12-19 00:00 :00 No 1 Every 4 Hours as needed for Prn [facility] Albuterol/I pratropium (Duoneb Neb Soln) 3 Ml SOLN 12-19 00:00 :00 No 3mL Q4 Prn Sob [facility] Atorvastati n Calcium (Lipitor) 20 Mg TAB 12-19 00:00 :00 No 20mg Bedtime [facility] Carvedilol (Coreg) 3.125 Mg TAB 12-19 00:00 :00 No 3.125mg Twice A Day [facility] Guaifenesin (Robitussin Liq) 100 Mg/5 Ml SYRUP 12-19 00:00 :00 No 100mg Q 4 Hrs Prn Cough [facility] Ipratropium [place] (Atrovent 0.06% Nasal [place]) 42 Mcg SPRAY 12-19 00:00 :00 No 2 Twice A Day [facility] Promethazin e Hcl (Phenergan) 25 Mg TAB 12-19 00:00 :00 No 25mg as needed for Q 6 Prn [facility] Acetaminoph en (Tylenol) 325 Mg TAB 12-19 00:00 :00 No 650mg Q 4 Hrs Prn [facility] Acetaminoph en/Hydrocod one Bitart ([place] 5/325) 1 Tab TAB 12-19 00:00 :00 No 1 Every 4 Hours as needed for Prn [facility] Albuterol/I pratropium (Duoneb Neb Soln) 3 Ml SOLN 12-19 00:00 :00 No 3mL Q4 Prn Sob [facility] Atorvastati n Calcium (Lipitor) 20 Mg TAB 12-19 00:00 :00 No 20mg Bedtime [facility] Carvedilol (Coreg) 3.125 Mg TAB 12-19 00:00 :00 No 3.125mg Twice A Day [facility] Guaifenesin (Robitussin Liq) 100 Mg/5 Ml SYRUP 12-19 00:00 :00 No 100mg Q 4 Hrs Prn Cough [facility] Ipratropium [place] (Atrovent 0.06% Nasal [place]) 42 Mcg SPRAY 12-19 00:00 :00 No 2 Twice A Day [facility] Promethazin e Hcl (Phenergan) 25 Mg TAB 12-19 00:00 :00 No 25mg as needed for Q 6 Prn [facility] Vital Signs Vital Name Observation Time Observation Value Comments S jasmince Height 2023-04-15 21:49:00 165.1 CM Weight 2023-04-15 21:49:00 63.5 KG Height 2023-04-15 21:49:00 165.1 CM Weight 2023-04-15 21:49:00 63.5 KG height 2021-04-24 09:00:00 65 [in_i] Commo n [facility] weight 2021-04-24 09:00:00 144 [lb_av] Comm on [facility] temperature 2021-04-24 09:00:00 97.2 [degF] Com mon [facility] bmi 2021-04-24 09:00:00 23.96 kg/m2 Comm on [facility] blood pressure systolic 2021-04-24 09:00:00 110 mm[Hg] [facility] blood pressure diastolic 2021-04-24 09:00:00 76 mm[Hg] [facility] height 2021-03-26 09:45:00 65 [in_i] Commo n [facility] weight 2021-03-26 09:45:00 144 [lb_av] Comm on [facility] bmi 2021-03-26 09:45:00 23.96 kg/m2 Comm on [facility] blood pressure systolic 2021-03-26 09:45:00 108 mm[Hg] [facility] blood pressure diastolic 2021-03-26 09:45:00 70 mm[Hg] [facility] Body Temperature 2023-04-15 21:49:00 97.6 [degF] [facility] (LUF/RUSTY/SA) Pulse Rate 2023-04-15 21:49:00 94 /min [facility] (LUF/RUSTY/SA) Respiratory Rate 2023-04-15 21:49:00 20 /min [facility] (LUF/RUSTY/SA) O2% BldC Oximetry 2023-04-15 21:49:00 98 % [facility] (LUF/RUSTY/SA) BP Systolic 2023-04-15 21:49:00 128 mm[Hg] [facility] (LUF/RUSTY/SA) BP Diastolic 2023-04-15 21:49:00 80 mm[Hg] [facility] (LUF/RUSTY/SA) Height 2023-04-15 21:49:00 65 [in_i] [facility] (LUF/RUSTY/SA) Weight 2023-04-15 21:49:00 140 [lb_av] [facility] (LUF/RUSTY/SA) BMI (Body Mass Index) 2023-04-15 21:49:00 23.3 kg/m2 [facility] (LUF/RUSTY/SA) BP Diastolic 2022-01-18 11:32:00 62 mm[Hg] [facility] BP Systolic 2022-01-18 11:32:00 110 mm[Hg] [facility] Heart Rate 2022-01-18 11:32:00 73 /min [facility] Respiratory rate 2022-01-18 11:32:00 16 /min [facility] Body Temperature 2022-01-18 11:32:00 98.0 [degF] [facility] BP Diastolic 2022-01-18 10:59:00 62 mm[Hg] [facility] BP Systolic 2022-01-18 10:59:00 110 mm[Hg] [facility] Health Heart Rate 2022-01-18 10:59:00 73 /min [facility] Health Respiratory rate 2022-01-18 10:59:00 16 /min [facility] Body Temperature 2022-01-18 10:59:00 98.0 [degF] [facility] Heart Rate 2022-01-18 09:14:00 85 /min [facility] Health Respiratory rate 2022-01-18 09:14:00 16 /min [facility] Body Temperature 2022-01-18 09:14:00 98.3 [degF] [facility] BP Diastolic 2022-01-18 06:30:00 45 mm[Hg] [facility] BP Systolic 2022-01-18 06:30:00 102 mm[Hg] [facility] Heart Rate 2022-01-18 06:30:00 116 /min [facility] Health Respiratory rate 2022-01-18 06:30:00 17 /min [facility] Body Temperature 2022-01-18 06:30:00 102.2 [degF] [facility] BP Diastolic 2022-01-03 10:12:00 63 mm[Hg] [facility] BP Systolic 2022-01-03 10:12:00 107 mm[Hg] [facility] Heart Rate 2022-01-03 10:12:00 84 /min [facility] Health Respiratory rate 2022-01-03 10:12:00 14 /min [facility] Body Temperature 2022-01-03 10:12:00 97.5 [degF] [facility] BP Diastolic 2022-01-03 09:25:00 63 mm[Hg] [facility] BP Systolic 2022-01-03 09:25:00 107 mm[Hg] [facility] Heart Rate 2022-01-03 09:25:00 84 /min [facility] Respiratory rate 2022-01-03 09:25:00 14 /min [facility] Body Temperature 2022-01-03 09:25:00 97.5 [degF] [facility] BP Diastolic 2021-11-21 17:44:00 87 mm[Hg] [facility] BP Systolic 2021-11-21 17:44:00 139 mm[Hg] [facility] Heart Rate 2021-11-21 17:44:00 86 /min [facility] Respiratory rate 2021-11-21 17:44:00 18 /min [facility] Body Temperature 2021-11-21 17:44:00 98.1 [degF] [facility] BP Diastolic 2021-11-21 16:35:00 87 mm[Hg] [facility] BP Systolic 2021-11-21 16:35:00 139 mm[Hg] [facility] Heart Rate 2021-11-21 16:35:00 86 /min [facility] Respiratory rate 2021-11-21 16:35:00 18 /min [facility] Body Temperature 2021-11-21 16:35:00 98.1 [degF] [facility] Body Temperature 2019-07-15 13:25:00 97.2 [degF] [facility] Heart Rate 2019-07-15 13:25:00 85 /min [facility] Respiratory rate 2019-07-15 13:25:00 18 /min [facility] BP Systolic 2019-07-15 13:25:00 122 mm[Hg] [facility] BP Diastolic 2019-07-15 13:25:00 76 mm[Hg] [facility] Heart Rate 2019-07-15 10:35:00 85 /min [facility] Respiratory rate 2019-07-15 10:35:00 18 /min [facility] BP Systolic 2019-07-15 10:35:00 107 mm[Hg] [facility] BP Diastolic 2019-07-15 10:35:00 70 mm[Hg] [facility] Weight 2019-07-15 10:35:00 126 [lb_av] [facility] BMI (Body Mass Index) 2019-07-15 10:35:00 21.0 kg/m2 [facility] Procedures Procedure Date / Time Performed Performing Clinicia n Source X-ray of neck soft tissue 2022-01-18 00:00:00 [facility] Computed tomography of abdomen and pelvis with contrast 2022-01-18 00:00:00 [facility] EMERGENCY DEPT VISIT 2022-01-03 00:00:00 [facility] Plan of Care Planned Activity Planned Date Details Comments Source Future Scheduled Test Bacterial urine culture [code = 630-4] [facility] Goal Patient referral [code = 7473659 ] [facility] Goal Patient referral [code = 9759708 ] [facility] Instructions Pelvic Inflammat ory Disease [facility] Encounters Start Date/Time End Date/Time Encounter Type Admission Type Attending [facility] Care Facility Care Department Encounter ID Source 2021-10-08 13:41:31 [facility] [id number] [facility] 2021-10-08 13:39:26 Outpatient [facility] [id number] [facility] 2021-10-08 13:38:32 Outpatient [facility] [id number] [facility] 2021-10-08 13:36:58 [facility] [id number] [facility] 2021-10-08 13:26:28 Outpatient [facility] [id number] [facility] 2021-10-08 13:25:44 [facility] [id number] [facility] 2021-10-08 13:23:58 Outpatient KELBY CHRISTINE [facility] [id number] [facility] 2021-10-08 11:04:22 Outpatient KELBY CHRISTINE [facility] [id number] [facility] 2023-08-20 12:23:00 2023-08-20 14:48:00 Emergency ER JOLIE MCCOLLUM CHRTJP CHRTJP [id number] [facility] 2023-04-15 21:48:00 2023-04-16 01:00:00 RIGHT LOWER QUADRANT PAIN [address] [address] [facility] [id number] [facility] (LUF/LI V/SA) 2023-04-15 21:48:00 2023-04-16 01:00:00 Emergency 1 RAMAKRISHNA MILLS [facility] [id number] [facility] (LUF/LI V/SA) 2023-04-15 00:00:00 2023-04-15 00:00:[address] [id number] [facility] [id number] [facility] l (LUF/LI V/SA) 2023-04-15 00:00:00 2023-04-15 00:00:[address] [address] [facility] [id number] [facility] l (LUF/LI V/SA) 2022-08-27 00:00:00 2022-08-27 00:00:00 (TEL) [facility] [id number] [facility] 2022-01-18 06:25:00 2022-01-18 11:20:00 Departed Emergency Room ER HUY JOLIE AIDAN BERMUDEZ [id number] [facility] 2022-01-03 09:22:00 2022-01-03 10:13:00 Departed Emergency Room ER ULICES MORGAN [id number] [facility] 2022-01-03 09:22:00 2022-01-03 10:13:00 Emergency ER ULICES MORGAN [id number] [facility] 2021-11-21 16:32:00 2021-11-21 17:45:00 Departed Emergency Room ER KENAN DUMONT [id number] [facility] 2021-05-14 00:00:00 2021-05-14 00:00:00 (TEL) [facility] [id number] [facility] 2021-04-24 00:00:00 2021-04-24 00:00:00 (ESTGYN) 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 [facility] [id number] [facility] 2021-03-26 00:00:00 2021-03-26 00:00:00 OFFICE VISIT EST PT LEVEL 3 [facility] [id number] [facility] 2020-08-19 14:15:00 2020-08-19 14:15:00 Outpatient R KELBY RICH [facility] [id number] [facility] 2020-01-10 12:10:50 2020-01-10 12:56:26 Urgent Care Pob1, Acute Care Clinic [facility] [id number] 2020-01-10 12:20:00 2020-01-10 12:20:00 Outpatient R [facility] [id number] [facility] 2019-09-22 10:11:55 2019-09-22 12:28:00 Emergency X JOANIEZOILA [facility]ERR[facility]AY [facility] ERT [id number] [facility] 2019-08-03 10:00:00 2019-08-03 10:00:00 Outpatient [facility] [id number] [facility] 2019-07-15 10:32:00 2019-07-15 13:25:00 Departed Emergency Room [facility] [id number] [facility] 2019-07-15 10:32:00 2019-07-15 13:25:00 Departed Emergency Room JEREMY [facility] [id number] 66 [facility] LIVE HCIS 2019-06-20 10:15:00 2019-06-20 10:15:00 Outpatient [facility] I [id number] [facility] 2019-05-30 13:09:00 2019-05-30 13:09:00 Outpatient [facility] [id number] [facility] 2019-05-23 15:45:00 2019-05-23 15:45:00 Outpatient [facility] [id number] [facility] 2018-10-26 07:06:00 2018-10-26 23:59:00 ENC SUPV OTH NORMAL PREG THIRD TRI 3 SHERICE VELASQUEZ [facility] OPD [id number] [facility] (LUF/LI V/SA) 2018-07-08 14:37:00 2018-07-08 23:59:00 Inpatient 3 SHERICE VELASQUEZ [facility], [address] [place] [id number] [facility] [id number] [facility] (LUF/LI V/SA) 2018-04-19 10:20:00 2018-04-19 23:59:00 ENCTR SCREENING UNSPEC 3 SHERICE VELASQUEZ [facility], [address] [place] [address] [facility] [id number] [facility] (LUF/LI V/SA) Results Test Description Test Time Test Comments Results Resul t Comments Source CT ABDOMEN/PELVIS W/CONTRAST 2023-04-16 00:24:53 [facility] (LUF/RUSTY/SA)Name: HANNA HUDSON : 2000 Sex: F CT SCAN OF THE ABDOMEN AND PELVIS WITH CONTRASTHISTORY: Right lower quadrant abdominal pain.Comparison- None availableRadiation optimization: All CT scans at this facility use at least one ofthese dose optimization techniques: automated exposure control; mA and/or kVadjustment per patient size (includes targeted exams where dose is matched toclinical indication); or iterative reconstruction.FINDINGS: Lung bases: The visualized lung bases are clear. The heart is normal in size.Liver: Normal. No mass.Gallbladder and bile ducts: The gallbladder has been removed. No biliary ductaldilatation.Pancrea s: Normal. No ductal dilatation.Spleen: Normal. No splenomegaly.Adrenal glands: Normal. No mass.Kidneys and ureters: No renal stone is visualized. No hydronephrosis.Stomach and bowel: Unremarkable. No obstruction. No mucosal thickening.Appendix: Normal.Intraperitoneal space: No free air. Trace free fluid in the pelvis is likelyphysiologic.Vascul ature: No abdominal aortic aneurysm.Lymph nodes: No lymphadenopathy is detected.Urinary bladder: The urinary bladder appears normal.Reproductive: The uterus and ovaries appear normal.Bones/joints: No acute fracture or osseous destructive lesion.Soft tissues: Unremarkable.IMPRESSION: No acute abnormality is seen in the abdomen or pelvis. The appendixis normal.Electronically signed by: Ana Canales 04/16/2023 0:20Dictated By: ANA CANALESDate: 04/16/2023 00:24 STLML STLMLPREGNANCY TEST, Urine [id number] 22:11:00* Test Item Value Reference Range Interpretation Comme nts (Urine) (test code = PREGU) Negative STLMLURINALYSIS WITH [id number] 22:10:00* Test Item Value Reference Range Interpretation Comme nts Color (test code = UCOLR) Yellow Lt. Yellow A Clarity (test code = UCLAR) Cloudy Glucose (test code = UGLUC) Negative Negative N Bilirubin (test code = UBILI) Negative Negative N Ketones (test code = UKET) Negative Negative N Specific [place] (test code = USPGR) 1.020 1.005-1.030 A Blood (test code = UBLD) Trace-intact Negative A PH (test code = UPH) 7.5 4.5-8.0 A Protein (test code = UPROT) Trace Negative A Urobilinogen (test code = U UROB) 1.0 E.U./dL See_Comment A [Automated messa ge] The system which generated this result transmitted reference range: 0.2. The reference range was not used to interpret this result as normal/abnormal. Nitrite (test code = UNITR) Negative Negative N Leukocyte Esterase (test code = ULEUK) Negative Negative N WBC (test code = WBCUR) 6-10 NONE,0-1,2-5,6-10 N RBC (test code = RBCUR) 0-10 0-5 A Epithial Cells (test code = U EPI) 0-5 0-10 A Bacteria (test code = UBACT) 1+ NONE SEEN A STLMLCBC WITH AUTO [id number] 22:09:00* Test Item Value Reference Range Interpretation Comme nts WBC (test code = WBC) 8.91 10\\S\\3/ul 4.80-10.80 RBC (test code = RBC) 4.23 10\\S\\6/ul 4.20-5.40 Hemoglobin (test code = HGB) 13.4 gm/dl 12.0-14.0 Hematocrit (test code = HCT) 38.4 % 37.0-47.0 MCV (test code = MCV) 90.8 fL 81.0-99.0 MCH (test code = MCH) 31.7 pg 27.0-31.0 H MCHC (test code = MCHC) 34.9 gm/dl 33.0-37.0 RDW (test code = RDWVC) 11.5 % 11.5-14.5 Platelet (test code = PLT) 277 10\\S\\3/ul 130-400 MPV (test code = MPV) 9.6 fL 7.4-10.4 A NE% (test code = NE) 53.5 % 42.0-75.0 LY% (test code = LY) 38.4 % 13.0-42.0 MO% (test code = MO) 4.9 % 4.0-14.0 EO% (test code = EO) 2.6 % 1.0-5.0 BA% (test code = BA) 0.4 % 0.0-3.0 IG% (test code = IG%) 0.2 % 0.0-0.4 NRBC, Auto (test code = NRBC_AUTO) 0 /100WBC 0-2 STLMLVenous blood lactic acid measurement (moles/volume)2022-01-18 09:11:00* Test Item Value Reference Range Interpretation Comme [facility] Bedside Lactic Acid Venous ( test code = 2519-7) 0.31 0.50-2.00 [facility] leukocyte count (number/volume)2022-01-18 07:15:00* Test Item Value Reference Range Interpretation Comme [facility] White Blood Count (test code = 6690-2) 12.1 4.5-11.5 [facility] erythrocytes automated count (number/volume)2022-01-18 07:15:00* Test Item Value Reference Range Interpretation Comme [facility] Red Blood Count (test code = 789-8) 4.12 3.8-5.1 [facility] hemoglobin measurement (mass/volume)2022-01-18 07:15:00* Test Item Value Reference Range Interpretation Comme [facility] Hemoglobin (test code = 718-7) 12.7 12.0-15.2 [facility] HealthAutomated blood hematocrit (volume fraction)2022-01-18 07:15:00* Test Item Value Reference Range Interpretation Comme [facility] Hematocrit (test code = 4544-3) 36.9 34.0-45.5 [facility] HealthAutomated erythrocyte mean corpuscular volume (MCV) measurement 2022-01-18 07:15:00* Test Item Value Reference Range Interpretation Comme [facility] Mean Corpuscular Volume (marjorie t code = 787-2) 89.6 80-94 [facility]ated erythrocyte mean corpuscular hemoglobin (mass per erythrocyte)2022-01-18 07:15:00* Test Item Value Reference Range Interpretation Comme [facility] Mean Corpuscular Hemoglobin (test code = 785-6) 30.8 27.0-33.0 [facility] erythrocyte mean corpuscular hemoglobin concentration measurement (mass/volume)2022-01-18 07:15:00* Test Item Value Reference Range Interpretation Comme nts Mean Corpuscular Hemoglobin Concent (test code = 786-4) 34.4 33.0-37.0 [facility]Automated erythrocyte distribution width [id number] 07:15:00 * Test Item Value Reference Range Interpretation Comme nts Red Cell Distribution Width (test code = 788-0) 12.2 10.7-14.5 [facility] HealthAutomated blood platelet count (count/volume)2022-01-18 07:15:00 * Test Item Value Reference Range Interpretation Comme nts Platelet Count (test code = 777-3) 246 150-450 [facility]Autom[facility] blood platelet mean volume [id number] 07:15:00* Test Item Value Reference Range Interpretation Comme nts Mean Platelet Volume (test c ode = 98524-8) 9.1 5.7-10.7 [facility] HealthAutomated blood neutrophil count as percentage of total gnafqwyysl5184-91-53 07:15:00* Test Item Value Reference Range Interpretation Comme nts Neutrophils (%) (Auto) (test code = 770-8) 83 47-75 [facility] HealthAutomated blood lymphocyte count as percentage of total snicqacstf2630-08-91 07:15:00* Test Item Value Reference Range Interpretation Comme nts Lymphocytes (%) (Auto) (test code = 736-9) 10 25-44 [facility] HealthAutomated blood monocyte count as percentage of total leukocytes 2022-01-18 07:15:00* Test Item Value Reference Range Interpretation Comme nts Monocytes (%) (Auto) (test c ode = 5905-5) 7 3-10 [facility] HealthAutomated blood eosinophil count as percentage of total afhvdrmjrx7739-97-16 07:15:00* Test Item Value Reference Range Interpretation Comme nts Eosinophils (%) (Auto) (test code = 713-8) 0 0-7 [facility]Automated blood basophil count as percentage of total leukocytes 2022-01-18 07:15:00* Test Item Value Reference Range Interpretation Comme nts Basophils (%) (Auto) (test c ode = 706-2) 0 0-1 [facility]Automated blood neutrophil count (number/volume)2022-01-18 07:15:00* Test Item Value Reference Range Interpretation Comme nts Neutrophils # (Auto) (test c ode = 751-8) 10.1 1.3-6.7 [facility] HealthAutomated blood lymphocyte count (number/volume)2022-01-18 07:15:00* Test Item Value Reference Range Interpretation Comme nts Lymphocytes # (Auto) (test c ode = 731-0) 1.2 1.4-4.1 [facility] HealthBlood monocytes automated count (number/volume)2022-01-18 07:15:00* Test Item Value Reference Range Interpretation Comme nts Monocytes # (Auto) (test code = 742-7) 0.8 0-1.3 [facility] HealthAutomated blood eosinophil [id number] 07:15:00* Test Item Value Reference Range Interpretation Comme nts Eosinophils # (Auto) (test c ode = 711-2) 0.1 0-0.8 [facility] HealthAutomated blood basophil count (number/volume)2022-01-18 07:15:00 * Test Item Value Reference Range Interpretation Comme nts Basophils # (Auto) (test code = 704-7) 0.0 0-0.1 [facility] comment [id number] 07:15:00* Test Item Value Reference Range Interpretation Comme nts Manual Differential (test co de = 8265-1) Not Ind [facility] HealthUrinalysis specimen collection [id number] 07:15:00* Test Item Value Reference Range Interpretation Comme nts Urine Source (test code = 08807-0) URINE [facility] HealthColor of Urine by [id number] 07:15:00* Test Item Value Reference Range Interpretation Comme nts Urine Color (test code = 77661-6) Yellow Yel-July * [facility] HealthUrine clarity brqdocliedsyk8916-10-59 07:15:00* Test Item Value Reference Range Interpretation Comme nts Urine Appearance (test code = 65741-1) Clear Clear * [facility] HealthUrine pH measurement by automated test gwjbi7341-07-00 07:15:00* Test Item Value Reference Range Interpretation Comme nts Urine pH (test code = 12950-9) 7.5 5.0-8.0 [facility] HealthSpecific gravity of Urine by Automated test [id number] 07:15:00* Test Item Value Reference Range Interpretation Comme nts Urine Specific [place] (test code = 82609-0) 1.022 1.005-1.030 [facility] HealthUrine protein measurement by automated test strip (mass/volume) 2022-01-18 07:15:00* Test Item Value Reference Range Interpretation Comme nts Urine Protein (test code = 43701-9) Negative Negative * [facility] HealthUrine glucose measurement by automated test strip (mass/volume) 2022-01-18 07:15:00* Test Item Value Reference Range Interpretation Comme nts Urine Glucose (UA) (test cod e = 76572-9) Negative Negative * [facility] HealthKetones [Mass/volume] in Urine by Automated test [id number] 07:15:00* Test Item Value Reference Range Interpretation Comme nts Urine Ketones (test code = 61929-6) Negative Negative * [facility] HealthUrine erythrocytes count by automated test strip (number/volume) 2022-01-18 07:15:00* Test Item Value Reference Range Interpretation Comme nts Urine Occult Blood (test cod e = 14041-1) Negative Negative * [facility] HealthUrine nitrite detection by automated test [id number] 07:15:00* Test Item Value Reference Range Interpretation Comme nts Urine Nitrite (test code = 35747-6) Negative Negative [facility] HealthUrine total bilirubin measurement by automated test strip (mass/volume)2022-01-18 07:15:00* Test Item Value Reference Range Interpretation Comme nts Urine Bilirubin (test code = 97714-3) Negative Negative [facility] HealthUrine urobilinogen measurement by automated test strip (mass/volume)2022-01-18 07:15:00* Test Item Value Reference Range Interpretation Comme nts Urine Urobilinogen (test cod e = 01142-8) 6.0 0.0-1.0 [facility] HealthUrine leukocytes count by automated test strip (number/volume) 2022-01-18 07:15:00* Test Item Value Reference Range Interpretation Comme nts Urine Leukocyte Esterase (te st code = 53476-1) Negative Negative [facility] HealthMicroscopic examination of [id number] 07:15:00* Test Item Value Reference Range Interpretation Comme nts Microscopic Urinalysis (T) ( test code = 51821-8) Not Ind [facility] comment 07:15:00* Test Item Value Reference Range Interpretation Comme nts Urinalysis Comment (test code = 8262-8) * See_Comment [Automated messa ge] The system which generated this result transmitted reference range: *. The reference range was not used to interpret this result as normal/abnormal. [facility] HealthHCG ur iwkztbtmo7463-30-56 07:15:00* Test Item Value Reference Range Interpretation Comme nts Urine Test (test c ode = 6-3) Negative Negative [facility] HealthSodium TjxCu-gHjo8332-95-08 07:15:00* Test Item Value Reference Range Interpretation Comme nts Sodium Level (test code = 2951-2) 136 136-145 [facility] HealthSerum or plasma potassium measurement (moles/volume)2022-01-18 07:15:00* Test Item Value Reference Range Interpretation Comme nts Potassium Level (test code = 2823-3) 3.8 3.5-5.1 [facility] HealthSerum or plasma chloride measurement (moles/volume)2022-01-18 07:15:00* Test Item Value Reference Range Interpretation Comme nts Chloride Level (test code = 2075-0) 105 98-107 [facility] HealthSerum or plasma total carbon dioxide measurement (moles/volume) 2022-01-18 07:15:00* Test Item Value Reference Range Interpretation Comme nts Carbon Dioxide Level (test c ode = 2027-9) 22 22-29 [facility] HealthSerum or plasma anion gap determination (moles/volume)2022-01-18 07:15:00* Test Item Value Reference Range Interpretation Comme nts Anion Gap (test code = 93743-6) 13 8-18 [facility] HealthSerum or plasma urea nitrogen measurement (mass/volume)2022-01-18 07:15:00* Test Item Value Reference Range Interpretation Comme nts Blood Urea Nitrogen (test co de = 3094-0) 11 7-19 [facility] HealthSerum or plasma creatinine measurement (mass/volume)2022-01-18 07:15:00* Test Item Value Reference Range Interpretation Comme nts Creatinine (test code = 2160-0) 0.8 0.6-1.1 [facility] HealthGFR/BSA.pred SerPl [id number]-[id number] 07:15:00* Test Item Value Reference Range Interpretation Comme nts Estimat Glomerular Filtratio n Rate (test code = 74837-4) 94 90-142 [facility] HealthSerum or plasma urea nitrogen/creatinine mass sajsn6328-68-15 07:15:00* Test Item Value Reference Range Interpretation Comme nts BUN/Creatinine Ratio (test c ode = 3097-3) 14 [facility] HealthSerum or plasma glucose measurement (mass/volume)2022-01-18 07:15:00* Test Item Value Reference Range Interpretation Comme nts Glucose Level (test code = 2345-7) 115 60-100 [facility] HealthOsmolality SerPl [id number] 07:15:00* Test Item Value Reference Range Interpretation Comme nts Calculated Osmolality (test code = 15579-7) 272 [facility] HealthSerum or plasma calcium measurement (mass/volume)2022-01-18 07:15:00* Test Item Value Reference Range Interpretation Comme nts Calcium Level (test code = 21380-7) 9.0 8.4-10.2 [facility] HealthSerum or plasma total bilirubin measurement (mass/volume) 2022-01-18 07:15:00* Test Item Value Reference Range Interpretation Comme nts Total Bilirubin (test code = 1975-2) 1.1 0.2-1.2 [facility] HealthSerum or plasma aspartate aminotransferase measurement (enzymatic activity/volume)2022-01-18 07:15:00* Test Item Value Reference Range Interpretation Comme nts Aspartate Amino Transf (AST/ SGOT) (test code = 1920-8) 22 5-34 [facility] HealthSerum or plasma alanine aminotransferase measurement (enzymatic activity/volume)2022-01-18 07:15:00* Test Item Value Reference Range Interpretation Comme nts Alanine Aminotransferase (AL T/SGPT) (test code = 1742-6) 26 0-55 [facility] HealthSerum or plasma protein measurement (mass/volume)2022-01-18 07:15:00* Test Item Value Reference Range Interpretation Comme nts Total Protein (test code = 2885-2) 6.7 6.4-8.3 [facility] HealthSerum or plasma albumin measurement (mass/volume)2022-01-18 07:15:00* Test Item Value Reference Range Interpretation Comme nts Albumin (test code = 1751-7) 3.9 3.5-5.0 [facility] HealthSerum globulin measurement by calculation (mass/volume)2022-01-18 07:15:00* Test Item Value Reference Range Interpretation Comme nts Globulin (test code = 41980-9) 2.8 [facility] HealthSerum or plasma albumin/globulin mass [id number] 07:15:00* Test Item Value Reference Range Interpretation Comme nts Albumin/Globulin Ratio (test code = 1759-0) 1.4 [facility] HealthSerum or plasma alkaline phosphatase measurement (enzymatic activity/volume)2022-01-18 07:15:00* Test Item Value Reference Range Interpretation Comme nts Alkaline Phosphatase (test c ode = 6768-6) 52 40-150 [facility] Streptococcus pyogenes antigen [id number] 07:15:00* Test Item Value Reference Range Interpretation Comme nts Group A Streptococcus Screen (test code = 45100-9) Negative Negative [facility] HealthAutomated blood leukocyte count (number/volume)2019-07-15 11:40:00* Test Item Value Reference Range Interpretation Comme nts White Blood Count (test code = 6690-2) 7.2 10*3/uL 4.5-11.5 [facility] HealthBlood erythrocytes automated count (number/volume)2019-07-15 11:40:00* Test Item Value Reference Range Interpretation Comme nts Red Blood Count (test code = 789-8) 4.38 10*6/uL 3.8-5.1 [facility] HealthBlood hemoglobin measurement (mass/volume)2019-07-15 11:40:00* Test Item Value Reference Range Interpretation Comme nts Hemoglobin (test code = 718-7) 13.7 g/dL 12.0-15.2 [facility] HealthAutomated blood hematocrit (volume fraction)2019-07-15 11:40:00* Test Item Value Reference Range Interpretation Comme nts Hematocrit (test code = 4544-3) 40.3 % 34.0-45.5 [facility] HealthAutomated erythrocyte mean corpuscular volume (MCV) measurement 2019-07-15 11:40:00* Test Item Value Reference Range Interpretation Comme nts Mean Corpuscular Volume (marjorie t code = 787-2) 92.0 fL 80-94 [facility] HealthAutomated erythrocyte mean corpuscular hemoglobin (mass per erythrocyte)2019-07-15 11:40:00* Test Item Value Reference Range Interpretation Comme nts Mean Corpuscular Hemoglobin (test code = 785-6) 31.3 pg 27.0-33.0 [facility] HealthAutomated erythrocyte mean corpuscular hemoglobin concentration measurement (mass/[id number] 11:40:00* Test Item Value Reference Range Interpretation Comme nts Mean Corpuscular Hemoglobin Concent (test code = 786-4) 34.0 g/dL 33.0-37.0 [facility] HealthAutomated erythrocyte distribution width [id number] 11:40:00 * Test Item Value Reference Range Interpretation Comme nts Red Cell Distribution Width (test code = 788-0) 12.2 % 10.7-14.5 [facility] HealthAutomated blood platelet count (count/volume)2019-07-15 11:40:00 * Test Item Value Reference Range Interpretation Comme nts Platelet Count (test code = 777-3) 284 10*3/uL 150-450 [facility] HealthAutomated blood platelet mean volume lwfazvlgexa5858-68-96 11:40:00* Test Item Value Reference Range Interpretation Comme nts Mean Platelet Volume (test c ode = 03908-0) 10.2 fL 5.7-10.7 [facility] HealthSerum or plasma sodium measurement (moles/volume)2019-07-15 11:40:00* Test Item Value Reference Range Interpretation Comme nts Sodium Level (test code = 2951-2) 139 mmol/L 136-145 [facility]Serum or plasma potassium measurement (moles/volume)2019-07-15 11:40:00* Test Item Value Reference Range Interpretation Comme nts Potassium Level (test code = 2823-3) 4.0 mmol/L 3.5-5.1 [facility]Serum or plasma chloride measurement (moles/volume)2019-07-15 11:40:00* Test Item Value Reference Range Interpretation Comme nts Chloride Level (test code = 2075-0) 106 mmol/L 98-107 [facility] HealthSerum or plasma total carbon dioxide measurement (moles/volume) 2019-07-15 11:40:00* Test Item Value Reference Range Interpretation Comme nts Carbon Dioxide Level (test c ode = 8-9) 25 mmol/L 22-29 [facility] HealthSerum or plasma anion gap determination (moles/volume)2019-07-15 11:40:00* Test Item Value Reference Range Interpretation Comme nts Anion Gap (test code = 29344-0) 12 8-18 [facility] HealthSerum or plasma urea nitrogen measurement (mass/volume)2019-07-15 11:40:00* Test Item Value Reference Range Interpretation Comme nts Blood Urea Nitrogen (test co de = 3094-0) 8 mg/dL 7-19 [facility]Serum or plasma creatinine measurement (mass/volume)2019-07-15 11:40:00* Test Item Value Reference Range Interpretation Comme nts Creatinine (test code = 2160-0) 0.8 mg/dL 0.6-1.1 [facility] estimate [id number] 11:40:00* Test Item Value Reference Range Interpretation Comme nts Estimat Glomerular Filtratio n Rate (test code = 84258-4) 96 90-142 [facility]Serum or plasma urea nitrogen/creatinine mass [id number] 11:40:00* Test Item Value Reference Range Interpretation Comme nts BUN/Creatinine Ratio (test c ode = 3097-3) [address] [facility] HealthSerum or plasma glucose measurement (mass/volume)2019-07-15 11:40:00* Test Item Value Reference Range Interpretation Comme nts Glucose Level (test code = 2345-7) 95 mg/dL 60-100 [facility] HealthOsmolality of Serum or Plasma by vxsukbwvnjd3910-85-92 11:40:00* Test Item Value Reference Range Interpretation Comme nts Calculated Osmolality (test code = 75131-3) 276 mosm/kg [facility] HealthSerum or plasma calcium measurement (mass/volume)2019-07-15 11:40:00* Test Item Value Reference Range Interpretation Comme nts Calcium Level (test code = 25100-1) 9.6 mg/dL 8.4-10.2 [facility] sodium [facility] (moles/volume)2019-07-15 11:40:00* Test Item Value Reference Range Interpretation Comme nts Sodium Level (test code = 2951-2) 139 mmol/L Serum or plasma potassium measurement (moles/volume)2019-07-15 11:40:00* Test Item Value Reference Range Interpretation Comme nts Potassium Level (test code = 2823-3) 4.0 mmol/L Serum or plasma chloride measurement (moles/volume)2019-07-15 11:40:00* Test Item Value Reference Range Interpretation Comme nts Chloride Level (test code = 2075-0) 106 mmol/L Serum or plasma total carbon dioxide measurement (moles/volume)2019-07-15 11:40:00* Test Item Value Reference Range Interpretation Comme nts Carbon Dioxide Level (test c ode = 2028-9) 25 mmol/L Serum or plasma anion gap determination (moles/volume)2019-07-15 11:40:00* Test Item Value Reference Range Interpretation Comme nts Anion Gap (test code = 33677-0) 12 Serum or plasma urea nitrogen measurement (mass/volume)2019-07-15 11:40:00* Test Item Value Reference Range Interpretation Comme nts Blood Urea Nitrogen (test co de = 3094-0) 8 mg/dL Serum or plasma creatinine measurement (mass/volume)2019-07-15 11:40:00* Test Item Value Reference Range Interpretation Comme nts Creatinine (test code = 2160-0) 0.8 mg/dL GFR estimate [id number] 11:40:00* Test Item Value Reference Range Interpretation Comme nts Estimat Glomerular Filtratio n Rate (test code = 03964-4) 96 Serum or plasma urea nitrogen/creatinine mass [id number] 11:40:00* Test Item Value Reference Range Interpretation Comme nts BUN/Creatinine Ratio (test c ode = 3097-3) 10 Serum or plasma glucose measurement (mass/volume)2019-07-15 11:40:00* Test Item Value Reference Range Interpretation Comme nts Glucose Level (test code = 2345-7) 95 mg/dL Osmolality of Serum or Plasma by sjzvcjvwrku4966-14-35 11:40:00* Test Item Value Reference Range Interpretation Comme nts Calculated Osmolality (test code = 03163-7) 276 mosm/kg Serum or plasma calcium measurement (mass/volume)2019-07-15 11:40:00* Test Item Value Reference Range Interpretation Comme nts Calcium Level (test code = 57935-6) 9.6 mg/dL Automated blood leukocyte count (number/volume)2019-07-15 11:40:00* Test Item Value Reference Range Interpretation Comme nts White Blood Count (test code = 6690-2) 7.2 10*3/uL Blood erythrocytes automated count (number/volume)2019-07-15 11:40:00* Test Item Value Reference Range Interpretation Comme nts Red Blood Count (test code = 789-8) 4.38 10*6/uL Blood hemoglobin measurement (mass/volume)2019-07-15 11:40:00* Test Item Value Reference Range Interpretation Comme nts Hemoglobin (test code = 718-7) 13.7 g/dL Automated blood hematocrit (volume fraction)2019-07-15 11:40:00* Test Item Value Reference Range Interpretation Comme nts Hematocrit (test code = 4544-3) 40.3 % Automated erythrocyte mean corpuscular volume (MCV) zkhnbarmpxr8369-49-08 11:40:00* Test Item Value Reference Range Interpretation Comme nts Mean Corpuscular Volume (marjorie t code = 787-2) 92.0 fL Automated erythrocyte mean corpuscular hemoglobin (mass per erythrocyte) 2019-07-15 11:40:00* Test Item Value Reference Range Interpretation Comme nts Mean Corpuscular Hemoglobin (test code = 785-6) 31.3 pg Automated erythrocyte mean corpuscular hemoglobin concentration measurement (mass/vkl9770-48-40 11:40:00* Test Item Value Reference Range Interpretation Comme nts Mean Corpuscular Hemoglobin Concent (test code = 786-4) 34.0 g/dL Automated erythrocyte distribution width [id number] 11:40:00* Test Item Value Reference Range Interpretation Comme nts Red Cell Distribution Width (test code = 788-0) 12.2 % Automated blood platelet count (count/volume)2019-07-15 11:40:00* Test Item Value Reference Range Interpretation Comme nts Platelet Count (test code = 777-3) 284 10*3/uL Automated blood platelet mean volume vqnjllqjjvd7864-55-34 11:40:00* Test Item Value Reference Range Interpretation Comme nts Mean Platelet Volume (test c ode = 26296-9) 10.2 fL Urinalysis specimen collection [id number] 10:45:00* Test Item Value Reference Range Interpretation Comme nts Urine Source (test code = 93559-6) URINE [facility] HealthColor of Urine by Hvmj1433-38-28 10:45:00* Test Item Value Reference Range Interpretation Comme nts Urine Color (test code = 74187-7) Yellow Yel-July * [facility] HealthUrine clarity ldtcsfvjgpibb9518-44-08 10:45:00* Test Item Value Reference Range Interpretation Comme nts Urine Appearance (test code = 84431-1) Clear Clear * [facility] HealthUrine pH measurement by automated test gjvmn0399-98-97 10:45:00* Test Item Value Reference Range Interpretation Comme nts Urine pH (test code = 02241-4) 5.5 5.0-8.0 [facility] HealthSpecific gravity of Urine by Automated test [id number] 10:45:00* Test Item Value Reference Range Interpretation Comme nts Urine Specific [place] (test code = 74636-9) 1.028 1.005-1.030 [facility] HealthUrine protein measurement by automated test strip (mass/volume) 2019-07-15 10:45:00* Test Item Value Reference Range Interpretation Comme nts Urine Protein (test code = 57301-0) 10 mg/dL Negative * [facility] HealthUrine glucose measurement by automated test strip (mass/volume) 2019-07-15 10:45:00* Test Item Value Reference Range Interpretation Comme nts Urine Glucose (UA) (test cod e = 88592-2) Negative mg/dL Negative * [facility] HealthUrine ketones measurement by automated test strip (mass/volume) 2019-07-15 10:45:00* Test Item Value Reference Range Interpretation Comme nts Urine Ketones (test code = 35705-5) Negative mg/dL Negative * [facility] HealthUrine erythrocytes count by automated test strip (number/volume) 2019-07-15 10:45:00* Test Item Value Reference Range Interpretation Comme nts Urine Occult Blood (test cod e = 14059-9) Negative Negative * [facility] HealthUrine nitrite detection by automated test [id number] 10:45:00* Test Item Value Reference Range Interpretation Comme nts Urine Nitrite (test code = 96278-7) Negative Negative [facility] HealthUrine total bilirubin measurement by automated test strip (mass/volume)2019-07-15 10:45:00* Test Item Value Reference Range Interpretation Comme nts Urine Bilirubin (test code = 08424-7) Negative mg/dL Negative [facility] HealthUrine urobilinogen measurement by automated test strip (mass/volume)2019-07-15 10:45:00* Test Item Value Reference Range Interpretation Comme nts Urine Urobilinogen (test cod e = 08850-2) Negative mg/dL 0.0-1.0 [facility] HealthUrine leukocytes count by automated test strip (number/volume) 2019-07-15 10:45:00* Test Item Value Reference Range Interpretation Comme nts Urine Leukocyte Esterase (test code = 14226-2) Negative {Gaurav}/uL Negative [facility] HealthMicroscopic examination of stqyx3552-41-45 10:45:00* Test Item Value Reference Range Interpretation Comme nts Microscopic Urinalysis (T) ( test code = 86550-2) ----- [facility] HealthUrine sediment erythrocyte count by microscopy (number/high power field)2019-07-15 10:45:00* Test Item Value Reference Range Interpretation Comme nts Urine RBC (test code = 60338-1) None Seen /[HPF] 0-2 [facility] HealthUrine sediment leukocyte count by microscopy (number/high power field)2019-07-15 10:45:00* Test Item Value Reference Range Interpretation Comme nts Urine WBC (test code = 5821-4) 0-5 /[HPF] 0-5 [facility] HealthUrine sediment epithelial cell count by microscopy (number/high power field)2019-07-15 10:45:00* Test Item Value Reference Range Interpretation Comme nts Urine Epithelial Cells (test code = 5787-7) Rare /[HPF] Few [facility] HealthUrine sediment crystal count by microscopy (number/high power field)2019-07-15 10:45:00* Test Item Value Reference Range Interpretation Comme nts Urine Crystals (test code = 38783-1) None Seen /[HPF] None * [facility] HealthUrine sediment bacteria count by microscopy (number/high power field)2019-07-15 10:45:00* Test Item Value Reference Range Interpretation Comme nts Urine Bacteria (test code = 5769-5) Few /[HPF] None [facility] HealthUrine sediment casts count by microscopy (number/low power field) 2019-07-15 10:45:00* Test Item Value Reference Range Interpretation Comme nts Urine Casts (test code = 9842-6) None Seen /[LPF] None * [facility] HealthYeast detection in urine sediment by light ksnhxfyusm5802-85-18 10:45:00* Test Item Value Reference Range Interpretation Comme nts Urine Yeast (test code = 01230-8) None Seen /[HPF] None [facility] HealthService comment 10:45:00* Test Item Value Reference Range Interpretation Comme nts Urinalysis Comment (test code = 8262-8) * See_Comment [Automated [employer] ge] The system which generated this result transmitted reference range: *. The reference range was not used to interpret this result as normal/abnormal. [facility] comment 10:45:00* Test Item Value Reference Range Interpretation Comme nts Urine Culture Indicated (marjorie t code = 8264-4) To follow [facility] HealthColor of Urine by Wxhp5744-35-07 10:45:00* Test Item Value Reference Range Interpretation Comme nts Urine Color (test code = 15833-9) Yellow Urine clarity zgnrafzsukoqp8969-94-98 10:45:00* Test Item Value Reference Range Interpretation Comme nts Urine Appearance (test code = 15879-7) Clear Urine pH measurement by automated test izsfb6262-35-05 10:45:00* Test Item Value Reference Range Interpretation Comme nts Urine pH (test code = 73880-9) 5.5 Specific gravity of Urine by Automated test [id number] 10:45:00* Test Item Value Reference Range Interpretation Comme nts Urine Specific [place] (test code = 78666-0) 1.028 Urine protein measurement by automated test strip (mass/volume)2019-07-15 10:45:00* Test Item Value Reference Range Interpretation Comme nts Urine Protein (test code = 20948-3) 10 mg/dL Urine glucose measurement by automated test strip (mass/volume)2019-07-15 10:45:00* Test Item Value Reference Range Interpretation Comme nts Urine Glucose (UA) (test cod e = 64984-4) Negative mg/dL Urine ketones measurement by automated test strip (mass/volume)2019-07-15 10:45:00* Test Item Value Reference Range Interpretation Comme nts Urine Ketones (test code = 58740-4) Negative mg/dL Urine erythrocytes count by automated test strip (number/volume)2019-07-15 10:45:00* Test Item Value Reference Range Interpretation Comme nts Urine Occult Blood (test cod e = 72488-5) Negative Urine nitrite detection by automated test [id number] 10:45:00* Test Item Value Reference Range Interpretation Comme nts Urine Nitrite (test code = 65672-6) Negative Urine total bilirubin measurement by automated test strip (mass/volume) 2019-07-15 10:45:00* Test Item Value Reference Range Interpretation Comme nts Urine Bilirubin (test code = 05991-0) Negative mg/dL Urine urobilinogen measurement by automated test strip (mass/volume)2019-07-15 10:45:00* Test Item Value Reference Range Interpretation Comme nts Urine Urobilinogen (test cod e = 31113-5) Negative mg/dL Urine leukocytes count by automated test strip (number/volume)2019-07-15 10:45:00* Test Item Value Reference Range Interpretation Comme nts Urine Leukocyte Esterase (test code = 60230-6) Negative {Gaurav}/uL Microscopic examination of [id number] 10:45:00* Test Item Value Reference Range Interpretation Comme nts Microscopic Urinalysis (T) ( test code = 62413-3) ----- Urine sediment erythrocyte count by microscopy (number/high power field) 2019-07-15 10:45:00* Test Item Value Reference Range Interpretation Comme nts Urine RBC (test code = 46782-3) None Seen /[HPF] Urine sediment leukocyte count by microscopy (number/high power field)2019-07-15 10:45:00* Test Item Value Reference Range Interpretation Comme nts Urine WBC (test code = 5821-4) 0-5 /[HPF] Urine sediment epithelial cell count by microscopy (number/high power field) 2019-07-15 10:45:00* Test Item Value Reference Range Interpretation Comme nts Urine Epithelial Cells (test code = 5787-7) Rare /[HPF] Urine sediment crystal count by microscopy (number/high power field)2019-07-15 10:45:00* Test Item Value Reference Range Interpretation Comme nts Urine Crystals (test code = 34065-2) None Seen /[HPF] Urine sediment bacteria count by microscopy (number/high power field)2019-07-15 10:45:00* Test Item Value Reference Range Interpretation Comme nts Urine Bacteria (test code = 5769-5) Few /[HPF] Urine sediment casts count by microscopy (number/low power field)2019-07-15 10:45:00* Test Item Value Reference Range Interpretation Comme nts Urine Casts (test code = 9842-6) None Seen /[LPF] Yeast detection in urine sediment by light cwvlhprsxj5312-15-98 10:45:00* Test Item Value Reference Range Interpretation Comme nts Urine Yeast (test code = 54256-3) None Seen /[HPF] Service comment 10:45:00* Test Item Value Reference Range Interpretation Comme nts Urinalysis Comment (test code = 8262-8) * Service comment 10:45:00* Test Item Value Reference Range Interpretation Comme nts Urine Culture Indicated (marjorie t code = 8264-4) To follow Urinalysis specimen collection tpsgfh6344-73-18 10:45:00* Test Item Value Reference Range Interpretation Comme nts Urine Source (test code = 26820-8) URINE US OB FOLLOW UP PER [id number] 08:47:26Procedure: US OB FOLLOW UP PER FETUSOrder Date: 10/26/2018 7:50 AMReferring Provider: SHERICE LOPEZlinical Indication: [id number]: Routine careComparison: July 08, 2018, April 19, 2018.Technique: Real-time ultrasound scanning was obtained over the gravid uterus andrepresentative imagesrecorded.Findings:There is a single, live intrauterine in vertex [...] 5 days and an estimated delivery date ofDecember 09, 2018.2. The anatomic survey is normal.3. There is no evidence of placenta previa and the maternal cervix is long andclosed. The cervical length is 5.0 cm.4. gender is male.5. Normal amniotic fluid index measuring 17 cm.This final report was electronically signed by Dr Lucien Zapien MD 10/26/20188:40 AMDictated By: LUCIEN ZAPIEN.Date: 10/26/2018 08:40[facility] OB COMP > 14 WKS (TA)2018-07-10 04:29:49 Procedure: OB COMP > 14 WKS (TA)Date: 07/08/2018 3:30 PMReferring Physician: SHERICE ROCHAERClinical Indication: Encounter for supervision of other normal , thirdtrimesterComparison: Obstetrical sonogram, 04/19/18.Real-time ultrasound scanning was obtained over the gravid uterus andrepresentative images recorded. There is a single, live intrauterine pregnancyin breech lie, which demonstrates spontaneous movement during the examination.The amniotic fluid volume is subjectively normal.The maternal cervix isappropriate in length and closed. The placenta is fundal and does not cover thecervical os on this exam. biometry as follows:BPD: 4.3 cm 19 weeks zero days.HC: 15.7 cm 18 we eks 4 days.AC: 14.1 cm 19 weeks 4 days.FL: 3.2 cm 19 weeks 6 daysEFW: 296 grams +/- 43 grams EFW byAUA percentile: 58%The average estimated gestational age is 18 weeks zero days, based on priorexam.There Has been adequate interval growth since prior exam. Estimated dateof delivery is 12/09/18 .Thefetal anatomic survey demonstrates normal intracranial landmarks, bonyspinal column free of gross de fects, left-sided stomach, three vessel umbilicalcord with normal cord insertion, all 4 limbs, kidneys and a 4-chamberheart with heart rate of 153 bpm.Impression:1. Single live intrauterine with an estimated gestational age of 18weeks zero days and an estimated delivery date of .2. The anatomic survey is normal.3. There is no evidence of placenta previa and the maternal cervix is long andclosed.Cervical Length: 3.9 cm4. gender is male.This final report was electronically signed by Dr Kelby Harmon MD07/10/2018 4:23 AMDictated By: KELBY BELLAMYDate: 07/10/2018 04:23[facility] OB <14 WKS 0 DAYS [id number] 13:52:42Procedure: [facility] OB <14 WKS 0 DAYS TRANSABDOrder Date: 04/19/2018 11:00 AMReferring Provider: DR SMILEY CARTERClinical Indication: Encounter for screening, unspecifiedComparison: None.Real-time ultrasound scanning was obtained over the gravid uterus andrepresentative images recorded. There is a single, live intrauterine .There is a pole with crown rump length measuring 0 .7 cm. The amnioticfluid volume is subjectively normal. The maternal cervix is appropriate inlengthand closed.The average estimated gestational age is 6 weeks 4 days. Estimated date ofdelivery is December 09, 2018. heart rate measures 120 beats per minute.There is no subchorionic fluid collection.Placental position not able to be determined at this time.The right ovary is normal in size without solid or cystic masses.The left ovary is normal in size without solid or cystic masses.There is nofree fluid in the cul-de-sac.Impression:1. Single live intrauterine with an estimated gestational age of 6weeks 4 days and an estimated delivery date of December 09, 2018.2. The heart rate measures 120 beats per minute.3. No subchorionic fluid collection.4. No adnexal masses.This finalreport was electronically signed by Dr Lucien Zapien MD 04/19/20181:46 PMDictated By: LUCIEN ZAPIENDate: 04/19/2018 13:52[facility] IMMUNE [id number] 09:47:00* Test Item Value Reference Range Interpretation Comme nts RUBELLA ANTIBODIES, IGG (test code = 228980) 1.31 index Immune >0.99 N Non-immune <0.90 Equivocal 0.90 - 0.99 Immune >0.99 PERFORMED AT: [facility] [address] [id number] [place] APPRENTICE: Diogenes Pitts MD PHONE: [phone] CountyLufkinRPR 2017-05-24 16:33:00* Test Item Value Reference Range Interpretation Comme nts FT (test code = RPR) Non-Reactive (quali fier value) Non-Reactive N [facility] Test Item Value Reference Range Interpretation Comme nts HIV 1, 2 (test code = HIV) 0.14 0.00-0.90 INTERPRETATION O F RESULTS: Non-Reactive = < 0.90 s/c Reactive = > 1.00 s/c (Confirmatory tests suggested) Intermediate = > 0.90 s/c and <1.00 s/c (results are based on duplicate testing) 1. Result is considered as Non-Reactive if both the initial and repeat testing results are non-reactive. 2. Result is considered as Reactive if one or both the initial and repeat testing results are reactive. (Confirmatory tests suggested) [facility] B SURFACE [id number] 11:05:00* Test Item Value Reference Range Interpretation Comme [facility] Hep B Surface Ag (Signal Value) (test code = HBSAG.SV) 0.06 mIU/mL 0.00-1.00 HBsAg Signal Cut off Interpretation Guide: < 1.00 Negative Specimen is presumed to be negative for HBsAg. >=1.00 and < 5.00 Reactive Specimen is reactive for HBsAg. Suggest confirmation by supplemental testing. > 5.00 Positive Specimen is positive for HBsAg. FT (test code = HBSAG) Negative (qualifier value) Negative N [facility] & [id number] 10:31:00* Test Item Value Reference Range Interpretation Comme nts ABO Blood Type (test code = ABO) O Rh (test code = RH) Positive Antibody Screen (test code = ABSCR) Negative Negative N ARMBAND# (test code = ARMBAND) FF 84 680 [facility] WITH AUTO [id number] 09:58:00* Test Item Value Reference Range Interpretation Comme nts WBC (test code = WBC) 11.80 10\\S\\3/ul 4.80-10.80 H RBC (test code = RBC) 3.44 10\\S\\6/ul 4.20-5.40 L Hemoglobin (test code = HGB) 10.4 gm/dl 12.0-14.0 L Hematocrit (test code = HCT) 30.6 % 37.0-47.0 L MCV (test code = MCV) 89.0 fL 81.0-99.0 MCH (test code = MCH) 30.2 pg 27.0-31.0 MCHC (test code = MCHC) 34.0 gm/dl 33.0-37.0 RDW (test code = RDWVC) 14.3 % 11.5-14.5 Platelet (test code = PLT) 233 10\\S\\3/ul 130-400 MPV (test code = MPV) 10.3 fL 7.4-10.4 A "NOT MEASURED" RESULTS ARE DISPLAYED WHEN THE INSTRUMENT HAS A SUPPRESSED OR UNREPORTABLE RESULT. THIS WILL MOST OFTEN HAPPEN WITH THE MPV WHEN THERE IS AN ABNORMAL PLATLET DISTRIBUTION DUE TO A CRITICAL LOW VALUE OR PLATELET CLUMPING. NE% (test code = NE) 88.3 % 42.0-75.0 H LY% (test code = LY) 8.2 % 13.0-42.0 L MO% (test code = MO) 2.6 % 4.0-14.0 L EO% (test code = EO) 0.1 % 1.0-3.0 L BA% (test code = BA) 0.3 % 1.0-3.0 L IG% (test code = IG%) 0.5 % 0.0-0.4 H [facility] WITH [id number] 04:52:00* Test Item Value Reference Range Interpretation Comme nts Color (test code = UCOLR) YELLOW Clarity (test code = UCLAR) CLEAR Glucose (test code = UGLUC) NEGATIVE NEGATIVE N Bilirubin (test code = UBILI) NEGATIVE NEGATIVE N Ketones (test code = UKET) NEGATIVE NEGATIVE N Specific [place] (test code = USPGR) 1.015 1.005-1.030 A Blood (test code = UBLD) NEGATIVE NEGATIVE N PH (test code = UPH) 7.5 4.5-8.0 A Protein (test code = UPROT) NEGATIVE NEGATIVE N Urobilinogen (test code = U UROB) 0.2 >0.2 N Nitrite (test code = UNITR) NEGATIVE NEGATIVE N Leukocyte Esterase (test cod e = ULEUK) NEGATIVE NEGATIVE N WBC (test code = WBCUR) 0-1 0-5 A RBC (test code = RBCUR) 0-1 0-5 A Epithial Cells (test code = U EPI) 0-10 0-10 N Mucous (test code = UMUC) None Seen None Seen N Bacteria (test code = UBACT) Trace None Seen,Trace N [facility]
[2024-04-15] MEDS ORDERED: LIDOCAINE VISCOUS 2% 10ML ORAL SOLN ONE (19:34)
[2024-04-15] MEDS ORDERED: MAGNES/ALUMIN/SIMET 30ML UCUP ONE (19:34)
--- NOTE | 2024-04-15 19:44 | RAD REPORT ---
EXAM DESCRIPTION: RAD - Neck Soft Tissue - 04/15/2024 7:38 pm CLINICAL HISTORY: FB sensation COMPARISON: <Comparisons> FINDINGS: Prevertebral soft tissues are normal. Epiglottis and aryepiglottic folds are normal. Air c olumn is patent. No foreign body is seen. IMPRESSION: Negative study.
--- NOTE | 2024-04-15 20:05 | EDPHYS ---
Physician Documentation [facility] Name: Jessica Ferrera Age: 24 yrs Sex: Female : 2000 Arrival Date: 04/15/2024 Time: 17:44 Bed 9 Private MD: ED Physician Clem Sena HPI: 04/15 18:54 This 24 yrs old Female presents to ER via Ambulatory with complaints of Sore Throat. sb4 18:54 The patient presents with a foreign body sensation in the throat. Onset: The sb4 symptoms/episode began/occurred 3 day(s) ago. The patient has not experienced similar symptoms in the past. The patient has not recently seen a physician. FB sensation/flapping feeling in lower esophagus worsening x 3 days. says she took a digestive enzyme a few days ago, thinks it could be that but isn't sure. denies any vomiting, but does feel nauseated when eating. Historical: - Allergies: 18:40 Hydrocodone-Acetaminophen; aa5 - PMHx: 18:40 None; aa5 - PSHx: 18:40 Cholecystectomy; section; aa5 - Immunization history:: Client reports receiving the 2nd dose of the Covid vaccine. - Infectious Disease History:: Denies. - Social history:: Smoking status: Patient denies any tobacco usage or history of. ROS: 18:54 Constitutional: Negative for fever, chills, and weight loss, sb4 18:54 ENT: Positive for foreign body sensation, sore throat, 18:54 All other systems are negative, Exam: 18:54 Constitutional: This is a well developed, well nourished patient who is awake, alert, sb4 and in no acute distress. Head/Face: Normocephalic, atraumatic. Eyes: Extra-ocular motions intact. Periorbital areas with no swelling, redness, or edema. ENT: Mucous membranes moist. Cardiovascular: Regular rate and rhythm with a normal S1 and S2. Respiratory: Lungs have equal breath sounds bilaterally, clear to auscultation and percussion. No rales, rhonchi or wheezes noted. No increased work of breathing, no retractions or nasal flaring. Abdomen/GI: Soft, non-tender, no distension. Skin: Warm, dry with normal turgor. Normal color with no rashes, no lesions, and no evidence of cellulitis. 18:54 ENT: Posterior pharynx: no acute changes, Airway: normal, no evidence of obstruction, patent, Tonsils: are normal in appearance, Uvula: normal, midline, Vital Signs: 18:39 BP 112 / 73; Pulse 84; Resp 17; Temp 97.2(TE); Pulse Ox 99% ; Weight 63.5 kg; Height 5 aa5 ft. 5 in. ; Pain 5/10; 20:50 BP 106 / 75; Pulse 73; Resp 16; Pulse Ox 100% ; Pain 0/10; kj2 18:39 Body Mass Index 23.30 (63.50 kg, 165.1 cm) aa5 18:39 Pain Scale: Adult aa5 20:50 Pain Scale: Adult kj2 MDM: 18:41 Patient medically screened. sb4 20:05 Data reviewed: vital signs, nurses notes, radiologic studies, and as a result, I will sb4 discharge patient. Counseling: I had a detailed discussion with the patient and/or guardian regarding the historical points, exam findings, and any diagnostic results supporting the discharge/admit diagnosis, radiology results, to return to the emergency department if symptoms worsen or persist or if there are any questions or concerns that arise at home. 04/15 18:46 Order name: Neck Soft Tissue XRAY; Complete Time: 19:45 sb4 Administered Medications: 19:48 Drug: GI Cocktail with - (Maalox PO 30 ml, Lidocaine Mucous Membrane 2 % 20 kj2 ml, Phenobarbital-Belladonna PO 10 ml) PO once Route: PO; 20:46 Follow up: Response: No adverse reaction kj2 Disposition: 20:22 Co-signature as Attending Physician, Clem Sena MD I reviewed the patient's care rt provided by the Advanced Practice Provider and agree with the diagnosis and treatment plan. Disposition Summary: 04/15/24 20:05 Discharge Ordered Notes: Location: Home sb4 Problem: new sb4 Symptoms: have improved sb4 Condition: Stable sb4 Diagnosis - Esophagitis, unspecified sb4 Followup: sb4 - With: Lizandro Torres MD - When: As needed - Reason: Recheck today's complaints, Re-evaluation by your physician Discharge Instructions: - Discharge Summary Sheet sb4 - Esophagitis sb4 Forms: - Patient Portal Instructions sb4 - Leadership Thank You Letter sb4 Prescriptions: - Pepcid 20 mg Oral Tablet - take 1 tablet ORAL route every 12 hours for 5 days; 10 tablet; Refills: 0, sb4 Product Selection Permitted Signatures: Dispatcher [employer] Jing Uribe, RN RN aa5 Pao Black PAAntoniaC PASoto sb4 Clem Sena MD MD rt Soheila Rutherford RN RN kj2 Corrections: (The following items were deleted from the chart) 18:55 18:54 ENT: Positive for sore throat, sb4 sb4
--- NOTE | 2024-04-15 20:05 | ER ---
Nurse's Notes [facility] Name: Jessica Ferrera Age: 24 yrs Sex: Female : 2000 Arrival Date: 04/15/2024 Time: 17:44 Bed 9 Private MD: Diagnosis: Esophagitis, unspecified Presentation: 04/15 18:39 Chief complaint: Patient states: Sore throat for 2-3 days, getting worse. Painful when aa5 swallowing. Coronavirus screen: Vaccine status: Patient reports receiving the 2nd dose of the covid vaccine. Ebola Screen: Patient denies travel to an Ebola-affected area in the 21 days before illness onset. Initial Sepsis Screen: Does the patient meet any 2 criteria? No. Patient's initial sepsis screen is negative. Does the patient have a suspected source of infection? No. Patient's initial sepsis screen is negative. Risk Assessment: Do you want to hurt yourself or someone else? Patient reports no desire to harm self or others. Onset of symptoms was April 13, 2024. 18:39 Method Of Arrival: Ambulatory aa5 18:39 Acuity: QUYEN 4 aa5 Historical: - Allergies: 18:40 Hydrocodone-Acetaminophen; aa5 - PMHx: 18:40 None; aa5 - PSHx: 18:40 Cholecystectomy; section; aa5 - Immunization history:: Client reports receiving the 2nd dose of the Covid vaccine. - Infectious Disease History:: Denies. - Social history:: Smoking status: Patient denies any tobacco usage or history of. Screenin:00 [facility] ED Fall Risk Assessment (Adult) History of falling in the last 3 months, kj2 including since admission No falls in past 3 months (0 pts) Confusion or Disorientation No (0 pts) Intoxicated or Sedated No (0 pts) Impaired Gait No (0 pts) Mobility Assist Device Used No (0 pt) Altered Elimination No (0 pt) Score/Fall Risk Level 0 - 2 = Low Risk Oriented to surroundings, Maintained a safe environment, Hourly rounding (assess needs \T\ fall precautionary measures) done. 19:00 Abuse screen: Denies threats or abuse. Denies injuries from another. Nutritional kj2 screening: No deficits noted. Tuberculosis screening: No symptoms or risk factors identified. Assessment: 19:00 General: Appears in no apparent distress. uncomfortable, Behavior is calm, cooperative, kj2 appropriate for age. 19:00 Pain: Complains of pain in throat Pain currently is 5 out of 10 on a pain scale. Neuro: kj2 Level of Consciousness is awake, alert, obeys commands, Oriented to person, place, time, situation. Cardiovascular: Patient's skin is warm and dry. Respiratory: Airway is patent Respiratory effort is even, unlabored. EENT: Reports sore throat. 20:50 Reassessment: Patient appears in no apparent distress at this time. Patient is alert, kj2 oriented x 3, equal unlabored respirations, skin warm/dry/pink. Patient denies pain at this time. Patient states feeling better. Patient states symptoms have improved. Vital Signs: 18:39 BP 112 / 73; Pulse 84; Resp 17; Temp 97.2(TE); Pulse Ox 99% ; Weight 63.5 kg; Height 5 aa5 ft. 5 in. ; Pain 5/10; 20:50 BP 106 / 75; Pulse 73; Resp 16; Pulse Ox 100% ; Pain 0/10; kj2 18:39 Body Mass Index 23.30 (63.50 kg, 165.1 cm) aa5 18:39 Pain Scale: Adult aa5 20:50 Pain Scale: Adult kj2 ED Course: 17:46 Patient arrived in ED. im 17:47 Pao Black PA-C is PHCP. sb4 17:47 Clem Sena MD is Attending Physician. sb4 18:40 Triage completed. aa5 18:41 Arm band placed on right wrist. aa5 19:00 Patient has correct armband on for positive identification. Bed in low position. Call kj2 light in reach. 19:00 Provided Education on: call light, fall precautions. kj2 19:24 Soheila Rutherford, RN is Primary Nurse. kj2 19:39 Neck Soft Tissue XRAY In Process Unspecified. EDMS 20:05 Lizandro Torres MD is Referral Physician. sb4 20:45 No provider procedures requiring assistance completed. Patient did not have IV access kj2 during this emergency room visit. Administered Medications: 19:48 Drug: GI Cocktail with - (Maalox PO 30 ml, Lidocaine Mucous Membrane 2 % 20 kj2 ml, Phenobarbital-Belladonna PO 10 ml) PO once Route: PO; 20:46 Follow up: Response: No adverse reaction kj2 Medication: 20:46 VIS not applicable for this client. kj2 Outcome: 20:05 Discharge ordered by . sb4 20:46 Discharged to home ambulatory, kj2 20:46 Condition: stable 20:46 Discharge instructions given to patient, Instructed on discharge instructions, follow up and referral plans. medication usage, Demonstrated understanding of instructions, follow-up care, medications, Prescriptions given X 1, 20:53 Patient left the ED. kj2 Signatures: Dispatcher [employer] EDMS Jing Ivey, RN RN [email or web address] Pao Black, PA-C PA-C sb4 Chasity Arizmendi Krystal, RN RN kj2 Corrections: (The following items were deleted from the chart) 20:51 19:00 Pain: Complains of pain in throat kj2 kj2
[2024-04-16 01:02] VITALS: TEMP 97.2
[2024-04-16 01:03] VITALS: BP 106/75; O2SAT 100
== END 2024-04-15 20:53 | disposition home or self-care (01) ==
LOC: ER 17:44
DX: K20.90 Esophagitis, unspecified without bleeding (principal)
CPT/HCPCS: 70360; 99283